=== PATIENT | male | born 1965 | race Caucasian/White ===

== ENCOUNTER 2020-01-18 00:52 | Inpatient (IN) | payer MEDICAID, OTHER ==
--- NOTE | 2020-01-18 01:28 | ED ---
Psych HPI - General Source: patient Mode of arrival: ambulatory <Mandy Rodriguez - Last Filed: 01/18/20 02:52> <Romy Watson - Last Filed: 01/18/20 05:40> - General Chief Complaint: Psychiatric Symptoms Stated Complaint: Left leg pain Time Seen by Provider: 01/18/20 01:01 - History of Present Illness Initial Comments: Patient is a 54-year-old male presenting to the emergency department obviously under the influence. He told nurse in triage that his legs hurt however patient seems to be under the influence of something, he states he has been drinking tonight and that "he does not have anywhere to go." Patient is refusing to answer any other questions, he is being uncooperative and making rude and vulgar comments. When asked if he is suicidal, he states "All the time." He denies any recent fever or chills. On arrival to the ER his vitals are stable. (Mandy Rodriguez) - Related Data Allergies Allergy/AdvReac Type Severity Reaction Status Date / Time No Known Allergies Allergy Verified 01/18/20 05:28 Review of Systems ROS Other: All systems not noted in ROS Statement are negative. <Mandy Rodriguez - Last Filed: 01/18/20 02:52> ROS Other: All systems not noted in ROS Statement are negative. <Romy Watson - Last Filed: 01/18/20 05:40> ROS Statement: Those systems with pertinent positive or pertinent negative responses have been documented in the HPI. Past Medical History Past Medical History: Unable to Obtain History of Any Multi-Drug Resistant Organisms: Unobtainable Past Surgical History: Unable to Obtain Past Psychological History: Unable to Obtain Smoking Status: Current every day smoker Past Alcohol Use History: Abuse, Daily, Heavy Past Drug Use History: Marijuana <Mandy Rodriguez - Last Filed: 01/18/20 02:52> General Exam Limitations: no limitations <Mandy Rodriguez - Last Filed: 01/18/20 02:52> - General Exam Comments Initial Comments: GENERAL: Patient appears intoxicated, not in any acute distress. HEAD: Atraumatic, normocephalic. EYES: Pupils equal round and reactive to light, extraocular movements intact, sclera anicteric, conjunctiva are normal. Eyelids were unremarkable. ENT: TMs normal, nares patent, oropharynx clear without exudates. Moist mucous membranes. NECK: Normal range of motion, supple without lymphadenopathy or JVD. LUNGS: Unlabored respirations. Breath sounds clear to auscultation bilaterally and equal. No wheezes rales or rhonchi. HEART: Regular rate and rhythm without murmurs, rubs or gallops. ABDOMEN: Soft, nontender, normoactive bowel sounds. No guarding, no rebound. No masses appreciated. : Deferred MUSCULOSKELETAL: Normal extremities with adequate strength and normal range of motion, no pitting or edema. No clubbing or cyanosis. NEUROLOGICAL: Patient is alert and oriented x 3. PSYCH: Appears intoxicated/under the influence SKIN: Warm, Dry, normal turgor, no rashes or lesions noted. (Mandy Rodriguez) Course <Mandy Rodriguez - Last Filed: 01/18/20 02:52> Vital Signs 01/18/20 01/18/20 01:05 05:30 Temperature 98 F 97.1 F L Pulse Rate 76 83 Respiratory 18 16 Rate Blood Pressure 156/76 122/61 O2 Sat by Pulse 98 100 Oximetry - Reevaluation(s) Reevaluation #1: 01/18/20 02:54 Waiting on EPS evaluation. Patient care signed out to Dr. Watson on 2:55. (Mandy Rodriguez) Medical Decision Making <Mandy Rodriguez - Last Filed: 01/18/20 02:52> - Lab Data Result diagrams: 01/18/20 02:40 01/18/20 02:04 <Romy Watson - Last Filed: 01/18/20 05:40> - Medical Decision Making patient is a 54-year-old male presenting with no specific complaint to the ER. Patient appears intoxicated upon arrival, will not say why he is here. He is showing no acute signs of distress, is A&O x 3. Patient's blood alcohol is only 27. I did check his glucose which is 101. Patient is not cooperative, declining any questions, states he just wants to sleep. I did recommend a psychiatric evaluation. (Mandy Rodriguez) Patient was medically cleared for evaluation by emergency psychiatric services. Both the emergency psychiatric services nurse and staff in the ER do feel that the patient appears familiar though under this name has no history of being seen here. Patient is very acutely psychotic providing a vague history of multiple complaints thoughts are all over the place, he seems to have rapidly cycling thoughts and pressured speech. At this time decision was made to admit the patient for acute psychosis. I did complete a psychiatric certification under the given name though the patient was unable to provide any proof of identity. (Romy Watson) - Lab Data Lab Results 01/18/20 01/18/20 01/18/20 Range/Units 02:04 02:04 02:30 WBC (3.8-10.6) k/uL RBC (4.30-5.90) m/uL Hgb (13.0-17.5) gm/dL Hct (39.0-53.0) % MCV (80.0-100.0) fL MCH (25.0-35.0) pg MCHC (31.0-37.0) g/dL RDW (11.5-15.5) % Plt Count (150-450) k/uL Neutrophils % % Lymphocytes % % Monocytes % % Eosinophils % % Basophils % % Neutrophils # (1.3-7.7) k/uL Lymphocytes # (1.0-4.8) k/uL Monocytes # (0-1.0) k/uL Eosinophils # (0-0.7) k/uL Basophils # (0-0.2) k/uL Hypochromasia Sodium 134 L (137-145) mmol/L Potassium 4.0 (3.5-5.1) mmol/L Chloride 104 (98-107) mmol/L Carbon Dioxide 24 (22-30) mmol/L Anion Gap 6 mmol/L BUN 5 L (9-20) mg/dL Creatinine 0.76 (0.66-1.25) mg/dL Est GFR (CKD-EPI)AfAm >90 (>60 ml/min/1.73 sqM) Est GFR (CKD-EPI)NonAf >90 (>60 ml/min/1.73 sqM) Glucose 94 (74-99) mg/dL POC Glucose (mg/dL) 101 H (75-99) mg/dL POC Glu Event Specialist Product Demonstrator ID Janae Avila Calcium 10.4 H (8.4-10.2) mg/dL Total Bilirubin 0.4 (0.2-1.3) mg/dL AST 45 (17-59) U/L ALT 32 (4-49) U/L Alkaline Phosphatase 69 (38-126) U/L Total Protein 6.8 (6.3-8.2) g/dL Albumin 4.2 (3.5-5.0) g/dL Urine Color Urine Appearance (Clear) Urine pH (5.0-8.0) Ur Specific [place] (1.001-1.035) Urine Protein (Negative) Urine Glucose (UA) (Negative) Urine Ketones (Negative) Urine Blood (Negative) Urine Nitrite (Negative) Urine Bilirubin (Negative) Urine Urobilinogen (<2.0) mg/dL Ur Leukocyte Esterase (Negative) Urine Opiates Screen (NotDetected) Ur Oxycodone Screen (NotDetected) Urine Methadone Screen (NotDetected) Ur Propoxyphene Screen (NotDetected) Ur Barbiturates Screen (NotDetected) U Tricyclic Antidepress (NotDetected) Ur Phencyclidine Scrn (NotDetected) Ur Amphetamines Screen (NotDetected) U Methamphetamines Scrn (NotDetected) U Benzodiazepines Scrn (NotDetected) Urine Cocaine Screen (NotDetected) U Marijuana (THC) Screen (NotDetected) Serum Alcohol 27 mg/dL 01/18/20 01/18/20 Range/Units 02:39 02:40 WBC 10.9 H (3.8-10.6) k/uL RBC 4.60 (4.30-5.90) m/uL Hgb 12.5 L (13.0-17.5) gm/dL Hct 41.7 (39.0-53.0) % MCV 90.7 (80.0-100.0) fL MCH 27.2 (25.0-35.0) pg MCHC 29.9 L (31.0-37.0) g/dL RDW 15.6 H (11.5-15.5) % Plt Count 385 (150-450) k/uL Neutrophils % 69 % Lymphocytes % 20 % Monocytes % 7 % Eosinophils % 3 % Basophils % 1 % Neutrophils # 7.5 (1.3-7.7) k/uL Lymphocytes # 2.1 (1.0-4.8) k/uL Monocytes # 0.7 (0-1.0) k/uL Eosinophils # 0.3 (0-0.7) k/uL Basophils # 0.1 (0-0.2) k/uL Hypochromasia Slight Sodium (137-145) mmol/L Potassium (3.5-5.1) mmol/L Chloride (98-107) mmol/L Carbon Dioxide (22-30) mmol/L Anion Gap mmol/L BUN (9-20) mg/dL Creatinine (0.66-1.25) mg/dL Est GFR (CKD-EPI)AfAm (>60 ml/min/1.73 sqM) Est GFR (CKD-EPI)NonAf (>60 ml/min/1.73 sqM) Glucose (74-99) mg/dL POC Glucose (mg/dL) (75-99) mg/dL POC Glu Event Specialist Product Demonstrator ID Calcium (8.4-10.2) mg/dL Total Bilirubin (0.2-1.3) mg/dL AST (17-59) U/L ALT (4-49) U/L Alkaline Phosphatase (38-126) U/L Total Protein (6.3-8.2) g/dL Albumin (3.5-5.0) g/dL Urine Color Colorless Urine Appearance Clear (Clear) Urine pH 5.5 (5.0-8.0) Ur Specific [place] 1.001 (1.001-1.035) Urine Protein Negative (Negative) Urine Glucose (UA) Negative (Negative) Urine Ketones Negative (Negative) Urine Blood Negative (Negative) Urine Nitrite Negative (Negative) Urine Bilirubin Negative (Negative) Urine Urobilinogen <2.0 (<2.0) mg/dL Ur Leukocyte Esterase Negative (Negative) Urine Opiates Screen Not Detected (NotDetected) Ur Oxycodone Screen Not Detected (NotDetected) Urine Methadone Screen Not Detected (NotDetected) Ur Propoxyphene Screen Not Detected (NotDetected) Ur Barbiturates Screen Not Detected (NotDetected) U Tricyclic Antidepress Not Detected (NotDetected) Ur Phencyclidine Scrn Not Detected (NotDetected) Ur Amphetamines Screen Not Detected (NotDetected) U Methamphetamines Scrn Not Detected (NotDetected) U Benzodiazepines Scrn Not Detected (NotDetected) Urine Cocaine Screen Not Detected (NotDetected) U Marijuana (THC) Screen Not Detected (NotDetected) Serum Alcohol mg/dL Disposition <Mandy Rodriguez - Last Filed: 01/18/20 02:52> Is patient prescribed a controlled substance at d/c from ED?: No <Romy Watson - Last Filed: 01/18/20 05:40> Clinical Impression: Acute psychosis Disposition: TRANSFER TO PSYCH HOSP/UNIT Condition: Serious
[2020-01-18 02:35] LABS: Glucose,Whole Blood 101 mg/dL (75-99)
[2020-01-18 02:56] LABS: ALT 32 U/L (4-49); AST 45 U/L (17-59); African American GFR (CKD) >90 (>60 ml/min/1.73 sqM); Albumin 4.2 g/dL (3.5-5.0); Alkaline Phosphatase 69 U/L (38-126); Anion Gap 6 mmol/L; Blood Urea Nitrogen 5 mg/dL (9-20); Calcium 10.4 mg/dL (8.4-10.2); Carbon Dioxide 24 mmol/L (22-30); Chloride 104 mmol/L (98-107); Glucose 94 mg/dL (74-99); Non-African American GFR(CKD) >90 (>60 ml/min/1.73 sqM); Sodium 134 mmol/L (137-145); Total Bilirubin 0.4 mg/dL (0.2-1.3); Total Protein 6.8 g/dL (6.3-8.2)
[2020-01-18 02:56] LABS: Basophils # (A) 0.1 k/uL (0-0.2); Basophils % (A) 1 %; Eosinophils # (A) 0.3 k/uL (0-0.7); Eosinophils % (A) 3 %; HCT 41.7 % (39.0-53.0); HGB 12.5 gm/dL (13.0-17.5); Hypochromasia Slight; Lymphocytes # (A) 2.1 k/uL (1.0-4.8); Lymphocytes % (A) 20 %; MCH 27.2 pg (25.0-35.0); MCHC 29.9 g/dL (31.0-37.0); MCV 90.7 fL (80.0-100.0); Mean Platelet Volume 6.4; Monocytes # (A) 0.7 k/uL (0-1.0); Monocytes % (A) 7 %; Neutrophils # (A) 7.5 k/uL (1.3-7.7); Neutrophils % (A) 69 %; Platelet Count 385 k/uL (150-450); RDW 15.6 % (11.5-15.5); WBC 10.9 k/uL (3.8-10.6)
[2020-01-18 03:03] LABS: Appearance,Urine Clear (Clear); Bilirubin,Urine Negative (Negative); Blood,Urine Negative (Negative); Color,Urine Colorless; Glucose,Urine (UA) Negative (Negative); Ketones,Urine Negative (Negative); Leukocyte Esterase,Urine Negative (Negative); Nitrite,Urine Negative (Negative); PH, Urine 5.5 (5.0-8.0); Protein,Urine Negative (Negative); Specific Gravity,Urine 1.001 (1.001-1.035); Urobilinogen,Urine <2.0 mg/dL (<2.0)
[2020-01-18 03:18] LABS: Amphetamine Screen,Urine Not Detected (NotDetected); Barbiturate Screen,Urine Not Detected (NotDetected); Benzodiazepines Screen,Urine Not Detected (NotDetected); Cocaine Screen,Urine Not Detected (NotDetected); Methadone Screen, Urine Not Detected (NotDetected); Opiate Screen,Urine Not Detected (NotDetected); Oxycodone Screen, Urine Not Detected (NotDetected); Phencyclidine Screen,Urine Not Detected (NotDetected); Tricyclic Antidepressant,Urine Not Detected (NotDetected); Urn Cannabinoid Scrn Not Detected (NotDetected)
[2020-01-18] MEDS ORDERED: LORazepam 2 MG/ML INJ IM PRN (05:27)
[2020-01-18] MEDS: NICOTINE 14MG/24HR PATCH TRANSDERM SCH (08:52)
[2020-01-18] MEDS ORDERED: MAGNESIUM HYDROXIDE 2,400 MG/10 ML CUP PO PRN (09:00)
[2020-01-18] MEDS ORDERED: ZIPRASIDONE 20 MG VIAL IM PRN (09:00)
[2020-01-18 09:36] LABS: Albumin 4.3 g/dL (3.5-5.0); Bilirubin, Delta 0.3 mg/dL (0.0-0.2); Bilirubin,Unconjugated 0.2 mg/dL (0.0-1.1); Total Bilirubin 0.5 mg/dL (0.2-1.3); Total Protein 6.9 g/dL (6.3-8.2)
--- NOTE | 2020-01-18 12:07 | P.HP ---
Psychiatric H&P - . H&P Date: 01/18/20 History & Physical: Allergies Allergy/AdvReac Type Severity Reaction Status Date / Time No Known Allergies Allergy Verified 01/18/20 05:28 Vital Signs Temp 98.0 F 01/18/20 05:45 Pulse 79 01/18/20 05:45 Resp 16 01/18/20 05:45 BP 117/80 01/18/20 05:45 Pulse Ox 100 01/18/20 05:30 Intake & Output 01/17/20 01/18/20 01/18/20 18:59 06:59 18:59 Weight 72.66 kg Laboratory Last Values WBC 10.9 k/uL (3.8-10.6) H 01/18/20 02:40 RBC 4.60 m/uL (4.30-5.90) 01/18/20 02:40 Hgb 12.5 gm/dL (13.0-17.5) L 01/18/20 02:40 Hct 41.7 % (39.0-53.0) 01/18/20 02:40 MCV 90.7 fL (80.0-100.0) 01/18/20 02:40 MCH 27.2 pg (25.0-35.0) 01/18/20 02:40 MCHC 29.9 g/dL (31.0-37.0) L 01/18/20 02:40 RDW 15.6 % (11.5-15.5) H 01/18/20 02:40 Plt Count 385 k/uL (150-450) 01/18/20 02:40 Neutrophils % 69 % 01/18/20 02:40 Lymphocytes % 20 % 01/18/20 02:40 Monocytes % 7 % 01/18/20 02:40 Eosinophils % 3 % 01/18/20 02:40 Basophils % 1 % 01/18/20 02:40 Neutrophils # 7.5 k/uL (1.3-7.7) 01/18/20 02:40 Lymphocytes # 2.1 k/uL (1.0-4.8) 01/18/20 02:40 Monocytes # 0.7 k/uL (0-1.0) 01/18/20 02:40 Eosinophils # 0.3 k/uL (0-0.7) 01/18/20 02:40 Basophils # 0.1 k/uL (0-0.2) 01/18/20 02:40 Hypochromasia Slight 01/18/20 02:40 Sodium 134 mmol/L (137-145) L 01/18/20 02:04 Potassium 4.0 mmol/L (3.5-5.1) 01/18/20 02:04 Chloride 104 mmol/L (98-107) 01/18/20 02:04 Carbon Dioxide 24 mmol/L (22-30) 01/18/20 02:04 Anion Gap 6 mmol/L 01/18/20 02:04 BUN 5 mg/dL (9-20) L 01/18/20 02:04 Creatinine 0.76 mg/dL (0.66-1.25) 01/18/20 02:04 Est GFR (CKD-EPI)AfAm >90 (>60 ml/min/1.73 sqM) 01/18/20 02:04 Est GFR (CKD-EPI)NonAf >90 (>60 ml/min/1.73 sqM) 01/18/20 02:04 Glucose 94 mg/dL (74-99) 01/18/20 02:04 POC Glucose (mg/dL) 101 mg/dL (75-99) H 01/18/20 02:30 POC Glu Software Computer Specialist Janae Faulkner 01/18/20 02:30 Calcium 10.4 mg/dL (8.4-10.2) H 01/18/20 02:04 Total Bilirubin 0.5 mg/dL (0.2-1.3) 01/18/20 08:56 Conjugated Bilirubin 0.0 mg/dL (0.0-0.3) 01/18/20 08:56 Unconjugated Bilirubin 0.2 mg/dL (0.0-1.1) 01/18/20 08:56 Delta Bilirubin 0.3 mg/dL (0.0-0.2) H 01/18/20 08:56 AST 42 U/L (17-59) 01/18/20 08:56 ALT 29 U/L (4-49) 01/18/20 08:56 Alkaline Phosphatase 71 U/L (38-126) 01/18/20 08:56 Total Protein 6.9 g/dL (6.3-8.2) 01/18/20 08:56 Albumin 4.3 g/dL (3.5-5.0) 01/18/20 08:56 Triglycerides 70 mg/dL (<150) 01/18/20 08:56 Cholesterol 130 mg/dL (<200) 01/18/20 08:56 LDL Cholesterol, Calc 29 mg/dL (0-99) 01/18/20 08:56 HDL Cholesterol 87 mg/dL (40-60) H 01/18/20 08:56 TSH 0.646 mIU/L (0.465-4.680) 01/18/20 08:56 Urine Color Colorless 01/18/20 02:39 Urine Appearance Clear (Clear) 01/18/20 02:39 Urine pH 5.5 (5.0-8.0) 01/18/20 02:39 Ur Specific [place] 1.001 (1.001-1.035) 01/18/20 02:39 Urine Protein Negative (Negative) 01/18/20 02:39 Urine Glucose (UA) Negative (Negative) 01/18/20 02:39 Urine Ketones Negative (Negative) 01/18/20 02:39 Urine Blood Negative (Negative) 01/18/20 02:39 Urine Nitrite Negative (Negative) 01/18/20 02:39 Urine Bilirubin Negative (Negative) 01/18/20 02:39 Urine Urobilinogen <2.0 mg/dL (<2.0) 01/18/20 02:39 Ur Leukocyte Esterase Negative (Negative) 01/18/20 02:39 Urine Opiates Screen Not Detected (NotDetected) 01/18/20 02:39 Ur Oxycodone Screen Not Detected (NotDetected) 01/18/20 02:39 Urine Methadone Screen Not Detected (NotDetected) 01/18/20 02:39 Ur Propoxyphene Screen Not Detected (NotDetected) 01/18/20 02:39 Ur Barbiturates Screen Not Detected (NotDetected) 01/18/20 02:39 U Tricyclic Antidepress Not Detected (NotDetected) 01/18/20 02:39 Ur Phencyclidine Scrn Not Detected (NotDetected) 01/18/20 02:39 Ur Amphetamines Screen Not Detected (NotDetected) 09/30/20 02:39 U Methamphetamines Scrn Not Detected (NotDetected) 01/18/20 02:39 U Benzodiazepines Scrn Not Detected (NotDetected) 01/18/20 02:39 Urine Cocaine Screen Not Detected (NotDetected) 01/18/20 02:39 U Marijuana (THC) Screen Not Detected (NotDetected) 01/18/20 02:39 Serum Alcohol 27 mg/dL 01/18/20 02:04 IDENTIFYING DATA: Patient is a 54-year-old male with significant history of bipolar disorder, antisocial disorder, and alcohol use who was a dmitted involuntarily for priyank. HPI: Patient presented to the hospital on 01/18/2020 under the influence of alcohol and stating that he "does not have anywhere to go." Patient reports that he came to the hospital because he is "in pain." And asked about the pain, patient reports that it is just everywhere. Upon evaluation the emergency department, patient was noted to have pressured speech, flight of ideas, and was making nonsensical statements. Upon arrival on the unit, patient is intermittently cooperative with staff and is unable to provide any clear and coherent history. He was noted to state that he was suicidal "all the time" but is currently denying any suicidal ideation to this provider. He does report homicidal ideation and that he would "fight people and that I am ready." He is unable to determine if this is to any specific person. He would go on multiple rents including around about police, the [employer], and how he was sleeping in a dumpster prior to coming to the hospital. When exploring his psychiatric history, patient asked this proposal lead writer how much would cost for him to be discharged. In exploring manic symptoms, patient does endorse racing thoughts, irritability, and periods of excessive energy. Patient states that he was awake for 14 days straight in the past. He admits to alcohol use but is not reporting any other drug or substance use at this time. PAST PSYCHIATRIC HISTORY: Patient is open with [facility]. He does recall some prior psychiatric medications but is unable to state which ones they are. He does report prior psychiatric hospitalizations. Patient denies any history of suicide attempts in the past. PMH: Able to obtain ALLERGIES: as per EMR CHEMICAL DEPENDENCY HISTORY: Alcohol use, marijuana, tobacco FAMILY PSYCHIATRIC/SUBSTANCE USE HISTORY: Unable to obtain SOCIAL HISTORY: Unable to obtain. MENTAL STATUS EXAM: General Appearance: Patient appears to be stated age is alert, but indirectable at times. Patient appears to have fair hygiene and grooming. Behavior: Patient is lying in bed with elevated psychomotor activity. Poor eye contact. Intermittently cooperative Speech: Patient's speech is pressured, tangential, and nonsensical at times. Mood/Affect: Patient reports their mood is "in pain", affect is expansive and labile. Suicidality/Homicidality: Patient reports having homicidal ideation but no current intention or plan. Denies any suicidal ideations intent or plan Perceptions: Patient denies any visual hallucinations and denies any auditory hallucinations Though content/process: Patient appears to be disorganized, with flight of ideas. Memory and concentration: AOX3, grossly intact for the purposes of this session. Concentration is poor. Judgment and insight: poor STRENGTHS/WEAKNESSES: strength is that patient is resilient. Weakness is that patient has poor judgment and is impulsive INTELLECT: average IMPRESSIONS: Bipolar disorder, type I, current episode manic PLAN: -Patient is admitted under involuntary status to MHU for stabilization of psychiatric symptoms and safety. A second certification was completed and along with petition will be filed for court. -Medications : Will start patient on Risperdal 0.5 mg by mouth twice a day for mood stabilization Depakote 500 mg by mouth at bedtime for mood stabilization -Ativan and Geodon PRN for agitation/aggression -CIWA protocol with Ativan PRN for ETOH withdrawal -Patient was informed of the risks, benefits and side effects of the medication and patient verbally consented to taking the medications. Patient refused to sign med consent form. -Internal Medicine consult to perform medical evaluation and physical. -NRT - nicotine patch - on board for discharge planning. Encourage patient to participate in groups to work on coping skills. 01/18/20 11:55
[2020-01-18] MEDS: MAG HYDROX/AL HYDROX/SIMETH 30 ML CUP PO PRN ×2 (15:10→20:50)
[2020-01-18] MEDS: ACETAMINOPHEN TAB 325 MG TAB PO PRN ×2 (16:25→20:15)
[2020-01-18] MEDS: risperiDONE 0.5 MG TAB PO SCH (20:14)
[2020-01-18] MEDS: LORazepam 1 MG TAB PO PRN (20:16)
[2020-01-18] MEDS ORDERED: DIVALPROEX ER 500 MG TAB.ER.24H PO SCH (21:00)
[2020-01-18 22:22] LABS: Hemoglobin A1C 5.7 % (4.0-6.0)
--- NOTE | 2020-01-18 22:51 | P.CONS ---
History of Present Illness - Reason for Consult Consult date: 01/18/20 - History of Present Illness Patient is a 54-year-old homeless male with a PMH of alcohol abuse, tobacco abuse, and bipolar disorder who had presented to the ED intoxicated and had reported suicidal ideation. The patient was admitted to the mental health unit where he was seen and evaluated earlier today. The patient was vulgar during the interview and examination. 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 He reported pain at the site though denied fever, chills. Denied any additional complaints. Denied nausea, vomiting, abdominal pain, or diarrhea. Denied chest pain, shortness of breath, or cough. Review of Systems Pertinent positives and negatives as discussed in HPI, a complete review of systems was performed and all other systems are negative. Past Medical History Past Medical History: Unable to Obtain History of Any Multi-Drug Resistant Organisms: Unobtainable Past Surgical History: Unable to Obtain Past Psychological History: Unable to Obtain Smoking Status: Current every day smoker Past Alcohol Use History: Abuse, Daily, Heavy Past Drug Use History: Marijuana Medications and Allergies Home Medications Medication Instructions Recorded Confirmed Type No Known Home Medications 01/18/20 01/18/20 History Allergies Allergy/AdvReac Type Severity Reaction Status Date / Time No Known Allergies Allergy Verified 01/18/20 05:28 Physical Exam Vitals: Vital Signs Temp Pulse Pulse Resp BP BP Pulse Ox 01/18/20 05:45 98.0 F 79 16 117/80 01/18/20 05:30 97.1 F L 83 16 122/61 100 01/18/20 01:05 98 F 76 18 156/76 98 Intake and Output 01/18/20 01/18/20 01/18/20 06:59 14:59 22:59 Other: Weight 72.66 kg General: non toxic, no distress, appears at stated age, normal weight Derm: Left anterior leg 2 cm round ulcer noted with scab and minimal underlying fluctuance with surrounding erythema and warmth and tenderness, no unusual ecchymoses, warm, dry Head: atraumatic, normocephalic, symmetric Eyes: EOMI, no lid lag, anicteric sclera, pupils equal round reactive to light ENT: Nose and ears atraumatic, no thrush, no pharyngeal erythema Neck: No thyromegaly, no cervical lymphadenopathy, trachea midline, supple Mouth: no lip lesion, mucus membranes moist Cardiovascular: S1S2 reg, grade 3 systolic murmur appreciated, positive posterior tibial pulse bilateral, no edema, capillary refill less than 2 seconds Lungs: CTA bilateral, no rhonchi, no rales , no accessory muscle use Abdominal: soft, nontender to palpation, no guarding, no appreciable organomegaly, normal bowel sounds Ext: no gross muscle atrophy, muscle strength 5 out of 5 in all 4 extremities grossly, no contractures, Neuro: CN II-XI grossly intact, light touch intact all 4 extremities, finger to nose within normal limits, Psych: Alert, oriented, appropriate affect Results CBC & Chem 7: 01/18/20 02:40 01/18/20 02:04 Labs: Abnormal Lab Results - Last 24 Hours (Table) 01/18/20 01/18/20 01/18/20 Range/Units 02:04 02:30 02:40 WBC 10.9 H (3.8-10.6) k/uL Hgb 12.5 L (13.0-17.5) gm/dL MCHC 29.9 L (31.0-37.0) g/dL RDW 15.6 H (11.5-15.5) % Sodium 134 L (137-145) mmol/L BUN 5 L (9-20) mg/dL POC Glucose (mg/dL) 101 H (75-99) mg/dL Calcium 10.4 H (8.4-10.2) mg/dL Delta Bilirubin (0.0-0.2) mg/dL HDL Cholesterol (40-60) mg/dL 01/18/20 Range/Units 08:56 WBC (3.8-10.6) k/uL Hgb (13.0-17.5) gm/dL MCHC (31.0-37.0) g/dL RDW (11.5-15.5) % Sodium (137-145) mmol/L BUN (9-20) mg/dL POC Glucose (mg/dL) (75-99) mg/dL Calcium (8.4-10.2) mg/dL Delta Bilirubin 0.3 H (0.0-0.2) mg/dL HDL Cholesterol 87 H (40-60) mg/dL Assessment and Plan Plan: Left lower extremity cellulitis -Proceed with a course of clindamycin -Mio the area for progress Systolic murmur -Patient reports he has had this murmur most of his life -Notes that this was why he was unable to enlist in the [employer] -Obtain echocardiogram Tobacco abuse -Nicotine patch when necessary Alcohol abuse -Thiamine, folic acid, multivitamin -Monitor for withdrawal Psychosis with depression -As per psychiatry Thank you for allowing us to participate in the care of this patient. We will follow peripherally. Do not hesitate to contact us with questions. Someone can be reached from the [facility] hospitalist group at all hours of the day at [phone].
[2020-01-18] MEDS: CLINDAMYCIN 150 MG CAP PO SCH (23:58)
[2020-01-19] MEDS: MAG HYDROX/AL HYDROX/SIMETH 30 ML CUP PO PRN (00:53)
[2020-01-19] MEDS: CLINDAMYCIN 150 MG CAP PO SCH ×3 (09:27→21:00)
[2020-01-19] MEDS: FOLIC ACID 1 MG TAB PO SCH (09:27)
[2020-01-19] MEDS: PANTOPRAZOLE 40 MG TABLET PO SCH ×2 (09:27→21:01)
[2020-01-19] MEDS: NICOTINE 14MG/24HR PATCH TRANSDERM SCH (09:28)
[2020-01-19] MEDS: THIAMINE 100 MG TAB PO SCH (09:28)
[2020-01-19] MEDS: MULTIVITAMINS, THERA 1 EACH TAB PO SCH (09:28)
[2020-01-19] MEDS: LORazepam 1 MG TAB PO PRN (09:29)
[2020-01-19] MEDS: risperiDONE 0.5 MG TAB PO SCH (09:29)
--- NOTE | 2020-01-19 12:10 | P.PN ---
Progress Note - Text Progress Note Date: 01/19/20 Interval History: Patient was seen participating in group and was directable and agreeable to speak with appeals writer in the office. Reports that he feels "better." At this time patient denies any suicidal or homical ideations, intent or plan. He states that his sleep was significantly improved with his medications. He has been noted to continue to be very tangential in his speech and somewhat disorganized. He has been interrupting groups and other milieu activities. At times, the patient appears to be intrusive and requests that someone from the unit go to a nearby house to coal picker supplies for him. Patient denies any auditory, visual hallucinations and denies any paranoia or delusions. Patient denies any side effects from the medications and has been compliant with meds. Mental Status Exam: General Appearance: Patient appears to be stated age is alert, directable, and cooperative. Behavior: Patient is calmly seated without any agitated behavior. Ambulates via wheelchair. Speech: Patient's speech is fluent and less pressured. Tangential. Mood/Affect: Mood is improving mildly, affect is congruent and expansive in range. Suicidality/Homicidality: Patient denies having any suicidal or homicidal ideation intent or plan. Perceptions: Patient denies any visual hallucinations and denies any auditory hallucinations Though content/process: Patient is somewhat disorganized but can be linear and logical and short conversation. Memory and concentration: AOX3, grossly intact for the purposes of this session Judgment and insight: Improving mildly Assessment Bipolar disorder, type I, current episode manic Plan: -Patient continues to meet criteria for inpatient psychiatric admission for symptom stabilization and safety. Second clinical certificate has been filled out. Patient will be presented with the opportunity to defer. -Medications: Increase Depakote to 750 mg by mouth at bedtime for mood stabilization Increase Risperdal to 0.75 mg by mouth twice a day for mood stabilization -When necessary Ativan and Geodon for agitation/aggression. -NRT - nicotine patch -SW on board for discharge planning. Encouraged the patient to participate in milieu.
[2020-01-19] MEDS: ACETAMINOPHEN TAB 325 MG TAB PO PRN (14:46)
--- NOTE | 2020-01-19 17:49 | ECHOF ---
Referral Reason:systolic murmur MEASUREMENTS -------- HEIGHT: 182.9 cm WEIGHT: 72.6 kg BP: RVIDd: 4.0 cm (< 3.3) IVSd: 1.4 cm (0.6 - 1.1) LVIDd: 5.4 cm (3.9 - 5.3) LVPWd: 1.4 cm (0.6 - 1.1) IVSs: 1.5 cm LVIDs: 3.5 cm LVPWs: 2.0 cm MV E Jose: 1.27 m/s MV DecT: 157 ms MV A Jose: 0.89 m/s MV E/A Ratio: 1.43 RAP: 15.00 mmHg RVSP: 51.05 mmHg FINDINGS -------- This was a technically adequate study. The left ventricular size is normal. There is moderate concentric left ventricular hypertrophy. O verall left ventricular systolic function is normal with, an EF between 55 - 60 %. Left ventricular fillimg pressure cannot be estimated due to severe mitral regurgitation. The right ventricle is moderately enlarged. LA is severely dilated >40 ml/m2 The right atrium is moderately enlarged. Interatrial and interventricular septum intact. The aortic valve is trileaflet and appears structurally normal. There is no evidence of aortic regu rgitation. There is no evidence of aortic stenosis. The mitral valve leaflets are mildly thickened. Severe mitral regurgitation is present. Pcgy-vq-ctkskadh tricuspid regurgitation present. There is moderate pulmonary hypertension. The r ight ventricular systolic pressure, as measured by Doppler, is 51.05mmHg. There is no pulmonic regurgitation present. The aortic root size is normal. The inferior vena cava is mildly dilated. There is no pericardial effusion. CONCLUSIONS -------- 1. The left ventricular size is normal. 2. There is moderate concentric left ventricular hypertrophy. 3. Overall left ventricular systolic function is normal with, an EF between 55 - 60 %. 4. Left ventricular fillimg pressure cannot be estimated due to severe mitral regurgitation. 5. The right ventricle is moderately enlarged. 6. LA is severely dilated >40 ml/m2 7. The right atrium is moderately enlarged. 8. The mitral valve leaflets are mildly thickened. 9. Severe mitral regurgitation is present. 10. Ajlz-sd-emqufayh tricuspid regurgitation present. 11. There is moderate pulmonary hypertension. 12. The right ventricular systolic pressure, as measured by Doppler, is 51.05mmHg. 13. consider CESAR to r/oflail mitral leaflet DIRECTOR OF ROTC: Ngoc Nur RDCS
[2020-01-19] MEDS ORDERED: DIVALPROEX ER 250 MG TAB.ER.24H PO SCH (21:00)
[2020-01-19] MEDS: risperiDONE 0.25 MG TAB PO SCH (21:01)
[2020-01-20] MEDS: MULTIVITAMINS, THERA 1 EACH TAB PO SCH (09:20)
[2020-01-20] MEDS: NICOTINE 14MG/24HR PATCH TRANSDERM SCH (09:20)
[2020-01-20] MEDS: FOLIC ACID 1 MG TAB PO SCH (09:20)
[2020-01-20] MEDS: CLINDAMYCIN 150 MG CAP PO SCH ×3 (09:20→21:32)
[2020-01-20] MEDS: THIAMINE 100 MG TAB PO SCH (09:20)
[2020-01-20] MEDS: PANTOPRAZOLE 40 MG TABLET PO SCH (09:20)
[2020-01-20] MEDS: risperiDONE 0.25 MG TAB PO SCH ×2 (09:20→21:32)
[2020-01-20] MEDS: ACETAMINOPHEN TAB 325 MG TAB PO PRN ×3 (09:21→19:44)
[2020-01-20] MEDS: LORazepam 1 MG TAB PO PRN (09:21)
--- NOTE | 2020-01-20 11:20 | P.PN ---
Progress Note - Text Progress Note Date: 01/20/20 Interval History: Patient was seen wandering the hallways and was directable and agreeable to speak with life insurance underwriter in the office. Patient continues to speak nonsensically. He appears to be fixated on "[employer] family businesses stating that they are his family. He expresses that there are numerous different people that annoy him and that he would "kick their a." He mentions numerous names of people that he seems this provider would know including an Uncle Huseyin who lives down the street. He reports no significant issues with sleep. He has been intrusive and making inappropriate sexually explicit statements to female staff on the unit despite being told not to. He is to be disruptive in group and milieu activities. He denies any depression. At this time patient denies any suicidal or homicidal ideations, intent or plan. Patient denies any auditory, visual h allucinations and denies any paranoia or delusions. Patient denies any side effects from the medications and has been compliant with meds. Mental Status Exam: General Appearance: Patient appears to be stated age is alert, slightly disheveled, difficult to direct and intermittently cooperative. Behavior: Patient is staring out the window at "[employer]" and stating that he is waiting for money to be dropped off. He doesn't sit down during the interview and paces back and forth in the room. Speech: Patient's speech is fluent, spontaneous, but significant pressured. Difficult to interrupt. Mood/Affect: Mood is irritable, affect is annoyed with expansive range. Suicidality/Homicidality: Patient denies having any suicidal ideation or intention. He does endorse outs of violence towards others. Perceptions: Patient denies any visual hallucinations and denies any auditory hallucinations Though content/process: Patient tends to fixate on people and property outside the windows. Flight of ideas and tangentiality. Memory and concentration: AOX3, grossly intact for the purposes of this session Judgment and insight: Poor Assessment Bipolar disorder, type I, current episode manic Plan: -Patient continues to meet criteria for inpatient psychiatric admission for symptom stabilization and safety. Patient was scheduled for a meeting with his assistant district attorney today with the option to defer. -Medications: Increase Depakote ER to 1000 mg by mouth at bedtime for mood stabilization Increase Risperdal to 1 mg by mouth twice a day for mood stabilization Depakote level to be drawn on Thursday -When necessary Ativan and Geodon for agitation/aggression. -NRT - ncotine patch SW on board for discharge planning. Encouraged the patient to participate in milieu.
[2020-01-20] MEDS: NAPROXEN 250 MG TAB PO PRN (17:11)
[2020-01-20] MEDS: MAG HYDROX/AL HYDROX/SIMETH 30 ML CUP PO PRN (17:24)
[2020-01-20] MEDS: DIVALPROEX ER 500 MG TAB.ER.24H PO SCH (21:33)
[2020-01-21] MEDS: FOLIC ACID 1 MG TAB PO SCH (09:10)
[2020-01-21] MEDS: PANTOPRAZOLE 40 MG TABLET PO SCH (09:10)
[2020-01-21] MEDS: CLINDAMYCIN 150 MG CAP PO SCH ×3 (09:10→21:21)
[2020-01-21] MEDS: MULTIVITAMINS, THERA 1 EACH TAB PO SCH (09:10)
[2020-01-21] MEDS: NICOTINE 14MG/24HR PATCH TRANSDERM SCH (09:10)
[2020-01-21] MEDS: THIAMINE 100 MG TAB PO SCH (09:10)
[2020-01-21] MEDS: risperiDONE 0.25 MG TAB PO SCH (09:12)
[2020-01-21] MEDS: LORazepam 1 MG TAB PO PRN (09:17)
[2020-01-21] MEDS: NAPROXEN 250 MG TAB PO PRN (10:59)
[2020-01-21] MEDS: ACETAMINOPHEN TAB 325 MG TAB PO PRN (13:49)
[2020-01-21] MEDS: MAG HYDROX/AL HYDROX/SIMETH 30 ML CUP PO PRN ×2 (16:23→21:24)
[2020-01-21] MEDS ORDERED: HYDROCORTISONE 2.5% RECTAL CREAM 30 GM TUBE RECTAL PRN (17:36)
[2020-01-21] MEDS: risperiDONE 1 MG TAB PO SCH ×2 (18:28→21:22)
--- NOTE | 2020-01-21 20:43 | PN ---
PROGRESS NOTE DATE OF SERVICE: 01/21/2020 CHIEF COMPLAINT: The patient was manic. He had disorganized thoughts and behavior. He stated that he had suicidal thinking. INTERVAL HISTORY: Patient continues to be quite intense in his manner. He was out much of the day yesterday. He wonders about. He can get loud at times. He has pressured speech and flight of ideas. He will engage others in random conversations about one thing or another. He did not attend groups. He said he slept well last night. Today he has been up. He continues the same. He apparently did defer in regard to his petition. He has not attended groups today. He has been loud intermittently. He has been cooperative. When I talked to him today, mostly he spoke with somewhat rapid pressured speech. He would ramble from one subject to another. At times, it was difficult to interrupt him or move the conversation towards more immediate issues. He denied problems with his medications. He did ask a few appropriate questions about his medications. MENTAL STATUS: Patient was quite restless. He had an intense manner. He talked in a rapid way at times. He showed flight of ideas and some loose association. He would ramble about current or past events. His affect was intense, his mood elevated. It was difficult to assess for thought disorder. He voiced no thoughts of harm. He did make an effort to answer formal cognitive questions though appeared to be oriented and alert. ASSESSMENT: I will continue the current diagnosis and treatment plan. We will continue to engage the patient in individual and group therapeutic activities. The patient continues to show significant manic symptoms. He does have a valproic acid level scheduled for tomorrow. I will increase his Risperdal to 3 mg twice a day. I reviewed medication issues with the patient including indications, potential side effects, metabolic concerns relating to his antipsychotic, as well as some movement disorder issues. I limited the discussion to some extent as the patient was not able to clearly follow the conversation. We will focus on stabilization and discharge planning. MMODL / AKILAN: [id number] /
[2020-01-21] MEDS: DIVALPROEX ER 500 MG TAB.ER.24H PO SCH (21:21)
[2020-01-22] MEDS: NICOTINE 14MG/24HR PATCH TRANSDERM SCH (09:10)
[2020-01-22] MEDS: CLINDAMYCIN 150 MG CAP PO SCH ×3 (09:10→21:25)
[2020-01-22] MEDS: MULTIVITAMINS, THERA 1 EACH TAB PO SCH (09:10)
[2020-01-22] MEDS: risperiDONE 1 MG TAB PO SCH ×2 (09:10→21:25)
[2020-01-22] MEDS: FOLIC ACID 1 MG TAB PO SCH (09:10)
[2020-01-22] MEDS: PANTOPRAZOLE 40 MG TABLET PO SCH (09:10)
[2020-01-22] MEDS: THIAMINE 100 MG TAB PO SCH (09:10)
[2020-01-22] MEDS: NAPROXEN 250 MG TAB PO PRN ×2 (09:11→21:31)
[2020-01-22] MEDS: MAG HYDROX/AL HYDROX/SIMETH 30 ML CUP PO PRN ×3 (09:15→21:31)
[2020-01-22] MEDS: ACETAMINOPHEN TAB 325 MG TAB PO PRN ×2 (13:06→17:01)
[2020-01-22] MEDS: DIVALPROEX ER 500 MG TAB.ER.24H PO SCH (21:24)
--- NOTE | 2020-01-23 02:17 | PN ---
PROGRESS NOTE DATE OF SERVICE: 01/22/2020. CHIEF COMPLAINT: The patient was manic. He had disorganized thoughts and behavior. He stated that he had suicidal thinking. INTERVAL HISTORY: Patient continues to do about the same. He was out on the unit much of the day yesterday. He wanders about. He will interact with others. He will often make efforts to engage in conversations whether other people respond to him or not. He did attend a group yesterday though needed some support to maintain appropriate language in the group, that was the only group he attended yesterday. Often he will be out wandering in a fairly high an energetic manner. He will make random statements, not always clear that connected to things going on around him. He generally seems to be up in his mood and at times can be somewhat boisterous. He tolerates his psychotropic medications. MENTAL STATUS: Patient was fairly restless in his manner. He gave fair eye contact. He was rather active in his movements, so it was not always clear that he was paying attention to me. His affect was broad. His mood expansive and generally elevated. He did not appear to be distressed. He shows some indication of thought disorder, mainly relating to his expansive mood. There is no thoughts of harm to self or others. He was oriented and alert. ASSESSMENT: I will continue the current diagnosis and treatment plan. Patient continues to show significant manic symptoms. He does seem to be showing some improvement, though it has been fairly gradual. His Depakote level was 35 from this morning. At this point I will increase Depakote to 1500 mg a day. I would anticipate his getting another Depakote level in 2 to 3 days. I briefly discussed medication issues with the patient, though he was not too inclined to stay connected to the conversation. We will focus on stabilization and discharge planning. MMODL / IJN: [id number] /
[2020-01-23] MEDS: NICOTINE 14MG/24HR PATCH TRANSDERM SCH (10:20)
[2020-01-23] MEDS: CLINDAMYCIN 150 MG CAP PO SCH ×2 (10:20→15:55)
[2020-01-23] MEDS: PANTOPRAZOLE 40 MG TABLET PO SCH (10:20)
[2020-01-23] MEDS: risperiDONE 1 MG TAB PO SCH (10:21)
[2020-01-23] MEDS: FOLIC ACID 1 MG TAB PO SCH (10:21)
[2020-01-23] MEDS: THIAMINE 100 MG TAB PO SCH (10:21)
[2020-01-23] MEDS: MULTIVITAMINS, THERA 1 EACH TAB PO SCH (10:21)
--- NOTE | 2020-01-23 11:33 | P.PN ---
Progress Note - Text Progress Note Date: 01/23/20 Interval History: Patient was seen in his bedroom and was directable and agreeable to speak with sports book writer in his bedroom with no one else present. She reported that he has been feeling increasingly tired and sedated and that is why he refused this morning's Risperdal. He is not endorsing any significant symptoms of priyank at this time. He expresses a desire for discharge to manage his finances and Social Security. At this time patient denies any suicidal or homicidal ideations, intent or plan. Patient denies any auditory, visual hallucinations and denies any paranoia or delusions. He endorses feeling overly sedated due to the medication. Mental Status Exam: General Appearance: Patient appears to be stated age is alert, directable, and cooperative. Behavior: Patient is lying in bed with intermittent eye contact covered in his bed sheets. Speech: Patient's speech is fluent and nonpressured. Mood/Affect: Mood is improving mildly, affect is congruent and constricted. Suicidality/Homicidality: Patient denies having any suicidal or homicidal ideation intent or plan. Perceptions: Patient denies any visual hallucinations and denies any auditory hallucinations Though content/process: There is no evidence of any delusional thought content and thought process is linear and goal-directed. Memory and concentration: AOX3, grossly intact for the purposes of this session Judgment and insight: Improving mildly Assessment Bipolar disorder, type I, current episode manic Plan: -Patient continues to meet criteria for inpatient psychiatric admission for symptom stabilization and safety. Patient has deferred. -Medications: Decrease Risperdal to 2 mg by mouth twice a day due to oversedation. Continue Depakote ER 1500 mg at bedtime for mood stabilization. Consider monitoring of Depakote level. Anticipate discharge in 1 to 3 days. -When necessary Atdavid and Mikedon for agitation/aggression. -NRT - nicotine patch -SW on board for discharge planning. Encouraged the patient to participate in milieu.
[2020-01-23] MEDS: ACETAMINOPHEN TAB 325 MG TAB PO PRN (15:55)
[2020-01-23] MEDS: MAG HYDROX/AL HYDROX/SIMETH 30 ML CUP PO PRN (15:58)
[2020-01-23] MEDS: risperiDONE 2 MG TAB PO SCH (21:11)
[2020-01-23] MEDS: DIVALPROEX ER 500 MG TAB.ER.24H PO SCH (21:11)
[2020-01-23] MEDS: NAPROXEN 250 MG TAB PO PRN (21:11)
[2020-01-24 04:48] VITALS: BP 120/62; PULSE 80; RESP 17; TEMP 98.1
--- NOTE | 2020-01-24 09:25 | P.DS ---
Providers Date of admission: 01/18/20 05:16 Expected date of discharge: 01/24/20 Attending physician: Eliezer George MD Consults: 01/18/20 05:24 Consult Physician Routine Consulting Provider: Amelia Ennis Consult Reason/Comments: For H & P for Medical Follow Up Do you want consulting provider notified?: Yes Primary care physician: Stated None - Discharge Diagnosis(es) (1) Bipolar 1 disorder Current Visit: Yes Status: Acute Priority: High (2) Tobacco use disorder Current Visit: Yes Status: Chronic Priority: Medium Hospital Course: Admission HPI: Patient is a 54-year-old male with significant history of bipolar disorder, antisocial disorder, and alcohol use who was admitted involuntarily for priyank. Patient presented to the hospital on 01/18/2020 under the influence of alcohol and stating that he "does not have anywhere to go." Patient reports that he came to the hospital because he is "in pain." And asked about the pain, patient reports that it is just everywhere. Upon evaluation the emergency department, patient was noted to have pressured speech, flight of ideas, and was making nonsensical statements. Upon arrival on the unit, patient is intermittently cooperative with staff and is unable to provide any clear and coherent history. He was noted to state that he was suicidal "all the time" but is currently d enying any suicidal ideation to this provider. He does report homicidal ideation and that he would "fight people and that I am ready." He is unable to determine if this is to any specific person. He would go on multiple rents including around about police, the [employer], and how he was sleeping in a dumpster prior to coming to the hospital. When exploring his psychiatric history, patient asked this typewriter mechanic how much would cost for him to be discharged. In exploring manic symptoms, patient does endorse racing thoughts, irritability, and periods of excessive energy. Patient states that he was awake for 14 days straight in the past. He admits to alcohol use but is not reporting any other drug or substance use at this time. Hospital course: Upon admission to the unit patient was initially intrusive, inappropriate, and somewhat disorganized. Patient was however directable and agreeable to commence treatment. Patient got along well with other patients on the unit and followed unit protocol. Patient was compliant with the medications and denied any side effects throughout hospital course. Patient was started on Risperdal and Depakote in order to stabilize his mood. Patient spoke of [his] stressors and engaged in therapy both group and individual. He was initially noted to be disruptive during group and milieu activities. Patient was also seen by medical team for history and physical exam. He has been adherent with his medications and eventually displayed stabilization in mood including regular sleep, less intrusiveness, less disorganization, and less sexually inappropriate behavior. Throughout the course of the hospitalization patient gradually improved with regards to mood stabilization and became future oriented with improved insight and judgment. On the day of discharge patient denied any suicidal or homicidal ideations intent or plan denied any auditory or visual hallucinations. Patient endorsed wanting to live for his family and his hobbies which include hunting deer with a bow. The patient denied any access to guns but reports that he has a recurve bow which she uses for hunting. Patient denied any paranoia and did not endorse any delusions. Patient does have a significant history of substance abuse, but was negative on his drug scene prior to this admission. He is reporting tolerance as well as medications and is denying any side effects. He reports no medical problems. He denies any chest pain, abdominal pain, muscle tightness, or restlessness. He [however] was counseled on abstaining from all substances including alcohol and marijuana. Patient was also counseled on the medications and need for regular compliance and was encouraged to follow-up with their outpatient appointment for mental health and also for primary care. Mental status exam: General Appearance: [Patient appears to be stated age is alert, pleasant, and cooperative. Patient is in no acute distress and has fair hygiene and grooming] Behavior: [Patient is calmly seated without any agitated behavior.] Speech: Patient's speech is fluent and nonpressured. Mood/Affect: Patient reports their mood is "[much better]", affect is congruent and euthymic to bright. Suicidality/Homicidality: Patient denies having any suicidal or homicidal ideation intent or plan. Perceptions: Patient denies any auditory or visual hallucinations. Though content/process: There is no evidence of any delusional thought content and thought process is linear and goal-directed. [more future oriented] Memory and concentration: AOX3, grossly intact for the purposes of this session. Can spell "WORLD" backwards correctly. Judgment and insight: Improved [with guarded prognosis] Impression: Bipolar disorder, type I Tobacco use disorder Plan: -Continue with discharge today as patient has improved and stabilized psychiatrically and is not currently an imminent threat to [himself] and/or others. [Patient will remain at chronically elevated risk for harm to self and/or others due to his impulsivity and history of drug abuse.] -Continue medications: Depakote 1500 mg by mouth at bedtime for mood stabilization Risperdal 2 mg by mouth twice a day for mood stabilization Nicotine patch for tobacco cessation -Patient was counseled on the need for medication compliance and appropriate follow-up at mental health and also primary care for medical issues. Patient verbalized understanding and agreed. -Social work to [arrange for and conduct family meeting to ensure safety upon discharge and answer any questions/concerns.] Social work also to arrange for patients follow up appointments [with [facility]] for psychiatric care along with follow up with primary care provider. -Patient counseled on abstaining from recreational drugs and marijuana and alcohol. Was informed/educated on the adverse effects on their physical and mental health. [Patient verbally agreed and understood]. -Patient was instructed to return to the hospital or seek immediate medical care if their psychiatric or medical symptoms do worsen or reoccur. Allergies Allergy/AdvReac Type Severity Reaction Status Date / Time No Known Allergies Allergy Verified 01/18/20 05:28 Vital Signs Temp 98.1 F 01/24/20 04:48 Pulse 80 01/24/20 04:48 Resp 17 01/24/20 04:48 BP 120/62 01/24/20 04:48 Pulse Ox 98 01/24/20 04:48 Laboratory Results WBC 10.9 k/uL (3.8-10.6) H 01/18/20 02:40 RBC 4.60 m/uL (4.30-5.90) 01/18/20 02:40 Hgb 12.5 gm/dL (13.0-17.5) L 01/18/20 02:40 Hct 41.7 % (39.0-53.0) 01/18/20 02:40 MCV 90.7 fL (80.0-100.0) 01/18/20 02:40 MCH 27.2 pg (25.0-35.0) 01/18/20 02:40 MCHC 29.9 g/dL (31.0-37.0) L 01/18/20 02:40 RDW 15.6 % (11.5-15.5) H 01/18/20 02:40 Plt Count 385 k/uL (150-450) 01/18/20 02:40 Neutrophils % 69 % 01/18/20 02:40 Lymphocytes % 20 % 01/18/20 02:40 Monocytes % 7 % 01/18/20 02:40 Eosinophils % 3 % 01/18/20 02:40 Basophils % 1 % 01/18/20 02:40 Neutrophils # 7.5 k/uL (1.3-7.7) 01/18/20 02:40 Lymphocytes # 2.1 k/uL (1.0-4.8) 01/18/20 02:40 Monocytes # 0.7 k/uL (0-1.0) 01/18/20 02:40 Eosinophils # 0.3 k/uL (0-0.7) 01/18/20 02:40 Basophils # 0.1 k/uL (0-0.2) 01/18/20 02:40 Hypochromasia Slight 01/18/20 02:40 Sodium 134 mmol/L (137-145) L 01/18/20 02:04 Potassium 4.0 mmol/L (3.5-5.1) 01/18/20 02:04 Chloride 104 mmol/L (98-107) 01/18/20 02:04 Carbon Dioxide 24 mmol/L (22-30) 01/18/20 02:04 Anion Gap 6 mmol/L 01/18/20 02:04 BUN 5 mg/dL (9-20) L 01/18/20 02:04 Creatinine 0.76 mg/dL (0.66-1.25) 01/18/20 02:04 Est GFR (CKD-EPI)AfAm >90 (>60 ml/min/1.73 sqM) 01/18/20 02:04 Est GFR (CKD-EPI)NonAf >90 (>60 ml/min/1.73 sqM) 01/18/20 02:04 Glucose 94 mg/dL (74-99) 01/18/20 02:04 POC Glucose (mg/dL) 101 mg/dL (75-99) H 09/30/20 02:30 POC Glu Truck Driver Helper ID Avila, Janae 01/18/20 02:[address] Glu mg/dL 117 01/18/20 08:56 Hemoglobin A1c 5.7 % (4.0-6.0) 01/18/20 08:56 Calcium 10.4 mg/dL (8.4-10.2) H 01/18/20 02:04 Total Bilirubin 0.5 mg/dL (0.2-1.3) 01/18/20 08:56 Conjugated Bilirubin 0.0 mg/dL (0.0-0.3) 01/18/20 08:56 Unconjugated Bilirubin 0.2 mg/dL (0.0-1.1) 01/18/20 08:56 Delta Bilirubin 0.3 mg/dL (0.0-0.2) H 01/18/20 08:56 AST 42 U/L (17-59) 01/18/20 08:56 ALT 29 U/L (4-49) 01/18/20 08:56 Alkaline Phosphatase 71 U/L (38-126) 01/18/20 08:56 Total Protein 6.9 g/dL (6.3-8.2) 01/18/20 08:56 Albumin 4.3 g/dL (3.5-5.0) 01/18/20 08:56 Triglycerides 70 mg/dL (<150) 01/18/20 08:56 Cholesterol 130 mg/dL (<200) 01/18/20 08:56 LDL Cholesterol, Calc 29 mg/dL (0-99) 01/18/20 08:56 HDL Cholesterol 87 mg/dL (40-60) H 01/18/20 08:56 TSH 0.646 mIU/L (0.465-4.680) 01/18/20 08:56 Urine Color Colorless 01/18/20 02:39 Urine Appearance Clear (Clear) 01/18/20 02:39 Urine pH 5.5 (5.0-8.0) 01/18/20 02:39 Ur Specific [place] 1.001 (1.001-1.035) 01/18/20 02:39 Urine Protein Negative (Negative) 01/18/20 02:39 Urine Glucose (UA) Negative (Negative) 01/18/20 02:39 Urine Ketones Negative (Negative) 01/18/20 02:39 Urine Blood Negative (Negative) 01/18/20 02:39 Urine Nitrite Negative (Negative) 01/18/20 02:39 Urine Bilirubin Negative (Negative) 01/18/20 02:39 Urine Urobilinogen <2.0 mg/dL (<2.0) 01/18/20 02:39 Ur Leukocyte Esterase Negative (Negative) 01/18/20 02:39 Urine Opiates Screen Not Detected (NotDetected) 01/18/20 02:39 Ur Oxycodone Screen Not Detected (NotDetected) 01/18/20 02:39 Urine Methadone Screen Not Detected (NotDetected) 01/18/20 02:39 Ur Propoxyphene Screen Not Detected (NotDetected) 01/18/20 02:39 Ur Barbiturates Screen Not Detected (NotDetected) 01/18/20 02:39 Valproic Acid 34.9 ug/mL 01/22/20 08:57 U Tricyclic Antidepress Not Detected (NotDetected) 01/18/20 02:39 Ur Phencyclidine Scrn Not Detected (NotDetected) 01/18/20 02:39 Ur Amphetamines Screen Not Detected (NotDetected) 01/18/20 02:39 U Methamphetamines Scrn Not Detected (NotDetected) 01/18/20 02:39 U Benzodiazepines Scrn Not Detected (NotDetected) 01/18/20 02:39 Urine Cocaine Screen Not Detected (NotDetected) 01/18/20 02:39 U Marijuana (THC) Screen Not Detected (NotDetected) 01/18/20 02:39 Serum Alcohol 27 mg/dL 01/18/20 02:04 Patient Condition at Discharge: Stable Plan - Discharge Summary Discharge Rx Participant: Yes New Discharge Prescriptions: New Divalproex ER [Depakote ER] 1,500 mg PO HS 30 Days tab.er.24h Folic Acid 1 mg PO DAILY 30 Days tab Nicotine 14Mg/24Hr Patch [Habitrol] 1 patch TRANSDERM DAILY 30 Days patch Multivitamins, Thera [Multivitamin (formulary)] 1 each PO DAILY 30 Days tab risperiDONE [RisperDAL] 2 mg PO BID 30 Days tab Thiamine [Vitamin B-1] 100 mg PO DAILY 30 Days tab Discharge Medication List Divalproex ER [Depakote ER] 1,500 mg PO HS 30 Days tab.er.24h 01/24/20 [Rx] Folic Acid 1 mg PO DAILY 30 Days tab 01/24/20 [Rx] Multivitamins, Thera [Multivitamin (formulary)] 1 each PO DAILY 30 Days tab 01/24/20 [Rx] Nicotine 14Mg/24Hr Patch [Habitrol] 1 patch TRANSDERM DAILY 30 Days patch 01/24/20 [Rx] Thiamine [Vitamin B-1] 100 mg PO DAILY 30 Days tab 01/24/20 [Rx] risperiDONE [RisperDAL] 2 mg PO BID 30 Days tab 01/24/20 [Rx] Follow up Appointment(s)/Referral(s): None,Stated [Primary Care Provider] - 1-2 days Activity/Diet/Wound Care/Special Instructions: Activity and diet as tolerated. Avoid the use of street drugs and alcohol. Take all medications as prescribed. When you are in need of refills on your medications please contact your medical provider and/or outpatient psychiatrist to have this done. Please go to scheduled outpatient appointment for aftercare treatment. If symptoms return or become worse, call the crisis line at and/or go to the nearest emergency room for evaluation. Discharge Disposition: OTHER INSTITUTION NOT DEFINED
[2020-01-24] MEDS: FOLIC ACID 1 MG TAB PO SCH (09:37)
[2020-01-24] MEDS: risperiDONE 2 MG TAB PO SCH (09:37)
[2020-01-24] MEDS: MULTIVITAMINS, THERA 1 EACH TAB PO SCH (09:37)
[2020-01-24] MEDS: PANTOPRAZOLE 40 MG TABLET PO SCH (09:37)
[2020-01-24] MEDS: NICOTINE 14MG/24HR PATCH TRANSDERM SCH (09:37)
[2020-01-24] MEDS: THIAMINE 100 MG TAB PO SCH (09:37)
[2020-01-24] MEDS: MAG HYDROX/AL HYDROX/SIMETH 30 ML CUP PO PRN (09:40)
== END 2020-01-24 12:52 | disposition home or self-care (01) | DRG 885 ==
LOC: EC 00:52 → 3MHU 05:16
PROVIDERS: ADMIT Psychiatry & Neurology Psychiatry; ATTEND Psychiatry & Neurology Psychiatry
DX: F31.2 Bipolar disorder, current episode manic severe with psychotic features (principal); R45.851 Suicidal ideations; L03.116 Cellulitis of left lower limb; R45.850 Homicidal ideations; R45.87 Impulsiveness; F17.200 Nicotine dependence, unspecified, uncomplicated; Z71.6 Tobacco abuse counseling; F10.10 Alcohol abuse, uncomplicated; Z59.0 Homelessness
CPT/HCPCS: 36415; 80053; 80061; 80076; 80164; 80306; 80320; 81003; 83036; 84443; 85025; 93306; 99285

== ENCOUNTER 2020-05-12 18:11 | Observation (INO) | payer OTHER ==
--- NOTE | 2020-05-12 18:59 | ED ---
General Adult HPI - General Chief complaint: Altered Mental Status Stated complaint: AMS Time Seen by Provider: 05/12/20 18:54 Source: patient, police Mode of arrival: wheelchair Limitations: altered mental status - History of Present Illness Initial comments: Patient presents to the ED from [facility] with correctional officer captain for evaluation. Per report, the patient has had altered mental status for the past couple of days. Per officer, the patient was "talking to someone in the back seat" during transport to the ED today. Patient is somnolent in appearance on arrival to the ED, and he requires constant stimulation in order to get him to answer questions. Patient tells me that he feels "fine". Patient denies having any pain, headache, focal neuro deficit, chest pain, dyspnea, palpitations, abdominal pain, nausea/vomiting/diarrhea, or any other symptoms or complaints. Patient denies medication abuse or overdose. Patient denies drug abuse or alcohol abuse. - Related Data Home Medications Medication Instructions Recorded Confirmed Benztropine Mesylate [Cogentin] 1 mg PO BID 05/12/20 05/12/20 Divalproex ER [Depakote ER] 1,000 mg PO HS 05/12/20 05/12/20 Omeprazole 20 mg PO DAILY 05/12/20 05/12/20 risperiDONE 4 mg PO BID 05/12/20 05/12/20 Allergies Allergy/AdvReac Type Severity Reaction Status Date / Time No Known Allergies Allergy Verified 05/12/20 19:42 Review of Systems ROS Statement: Those systems with pertinent positive or pertinent negative responses have been documented in the HPI. ROS Other: All systems not noted in ROS Statement are negative. Past Medical History Past Medical History: Unable to Obtain History of Any Multi-Drug Resistant Organisms: Unobtainable Past Surgical History: Unable to Obtain Past Psychological History: Unable to Obtain Smoking Status: Current every day smoker Past Alcohol Use History: Abuse, Daily, Heavy Past Drug Use History: Marijuana General Exam Limitations: altered mental status General appearance: other (Patient is somnolent in appearance, but easily arousable with loud verbal and painful stimulus) Head exam: Present: atraumatic, normocephalic Eye exam: Present: normal appearance, PERRL, EOMI ENT exam: Present: mucous membranes moist Neck exam: Present: other (Trachea is in midline; no nuchal rigidity or meningeal signs are present). Absent: tenderness, meningismus Respiratory exam: Present: normal lung sounds bilaterally. Absent: respiratory distress, wheezes, rales, rhonchi, stridor Cardiovascular Exam: Present: regular rate, normal rhythm, systolic murmur, other (Normal radial pulses bilaterally) GI/Abdominal exam: Present: soft. Absent: distended, tenderness, guarding Extremities exam: Absent: tenderness, pedal edema Neurological exam: Present: oriented X3, CN II-XII intact, other (Patient is somnolent in appearance, but easily arousable with loud verbal and painful stimulus). Absent: motor sensory deficit Psychiatric exam: Present: normal affect Skin exam: Present: warm, dry, intact, normal color Course Vital Signs 05/12/20 05/12/20 05/12/20 18:21 19:19 20:42 Temperature 98.6 F Pulse Rate 103 H 91 93 Respiratory 20 18 18 Rate Blood Pressure 137/88 177/102 182/106 O2 Sat by Pulse 98 96 97 Oximetry - Reevaluation(s) Reevaluation #1: 05/12/20 20:17 Case, H&P and test results were discussed with Dr. Carson. He accepts hospital admission. He recommends placing a neurology consultation for Thursday (when neurology coverage will restart). He also recommends Covid testing. He has no further recommendations at this time. 05/12/20 20:38 Patient remains somnolent, but arousable. Patient continues to deny having any symptoms. Patient continues to be breathing comfortably with a normal room air oxygen saturation. I have explained to the patient his test results, and he agrees with hospital admission at this time. 05/12/20 20:46 Patient now appears to be tremulous and his blood pressure has increased. Given that the patient is reportedly taking Risperdal, will treat the patient with IV Ativan at this time in case of possible NMS, although patient is not hyperthermic. EKG Findings - EKG Comments: EKG Findings:: Normal sinus rhythm, ventricular rate of 87 bpm, no ectopy, LVH with QRS widening, QRS duration of 120 ms, normal QT interval, normal axis, no ST or T-wave abnormality Medical Decision Making - Medical Decision Making Patient's labs and imaging studies are fairly unremarkable. I am uncertain of the definite etiology of the patient's altered mental status, but I suspect that it may possibly be secondary to his medications, and Risperdal in particular. Will hold patient's Risperdal. Will admit the patient the hospital for further evaluation and monitoring. Dr. Carson has accepted hospital admission. - Lab Data Result diagrams: 05/12/20 19:10 05/12/20 19:10 Lab Results 05/12/20 05/12/20 05/12/20 Range/Units 19:10 19:10 19:10 WBC 9.8 (3.8-10.6) k/uL RBC 4.03 L (4.30-5.90) m/uL Hgb 12.7 L (13.0-17.5) gm/dL Hct 39.1 (39.0-53.0) % MCV 97.0 (80.0-100.0) fL MCH 31.6 (25.0-35.0) pg MCHC 32.6 (31.0-37.0) g/dL RDW 14.8 (11.5-15.5) % Plt Count 190 (150-450) k/uL MPV 9.3 Neutrophils % 72 % Lymphocytes % 15 % Monocytes % 10 % Eosinophils % 1 % Basophils % 0 % Neutrophils # 7.1 (1.3-7.7) k/uL Lymphocytes # 1.5 (1.0-4.8) k/uL Monocytes # 1.0 (0-1.0) k/uL Eosinophils # 0.1 (0-0.7) k/uL Basophils # 0.0 (0-0.2) k/uL PT 10.8 (9.0-12.0) sec INR 1.0 (<1.2) APTT 20.0 L (22.0-30.0) sec Sodium 137 (137-145) mmol/L Potassium 5.1 (3.5-5.1) mmol/L Chloride 104 (98-107) mmol/L Carbon Dioxide 25 (22-30) mmol/L Anion Gap 8 mmol/L BUN 15 (9-20) mg/dL Creatinine 0.79 (0.66-1.25) mg/dL Est GFR (CKD-EPI)AfAm >90 (>60 ml/min/1.73 sqM) Est GFR (CKD-EPI)NonAf >90 (>60 ml/min/1.73 sqM) Glucose 105 H (74-99) mg/dL POC Glucose (mg/dL) (75-99) mg/dL POC Glu Popcorn Vendor ID Calcium 11.4 H (8.4-10.2) mg/dL Total Bilirubin 1.5 H (0.2-1.3) mg/dL AST 52 (17-59) U/L ALT 27 (4-49) U/L Alkaline Phosphatase 41 (38-126) U/L Ammonia (<30) umol/L Creatine Kinase 95 (55-170) U/L Troponin I (0.000-0.034) ng/mL Total Protein 8.0 (6.3-8.2) g/dL Albumin 4.7 (3.5-5.0) g/dL Valproic Acid 35.3 ug/mL Serum Alcohol <10 mg/dL 05/12/20 05/12/20 05/12/20 Range/Units 19:10 19:10 19:16 WBC (3.8-10.6) k/uL RBC (4.30-5.90) m/uL Hgb (13.0-17.5) gm/dL Hct (39.0-53.0) % MCV (80.0-100.0) fL MCH (25.0-35.0) pg MCHC (31.0-37.0) g/dL RDW (11.5-15.5) % Plt Count (150-450) k/uL MPV Neutrophils % % Lymphocytes % % Monocytes % % Eosinophils % % Basophils % % Neutrophils # (1.3-7.7) k/uL Lymphocytes # (1.0-4.8) k/uL Monocytes # (0-1.0) k/uL Eosinophils # (0-0.7) k/uL Basophils # (0-0.2) k/uL PT (9.0-12.0) sec INR (<1.2) APTT (22.0-30.0) sec Sodium (137-145) mmol/L Potassium (3.5-5.1) mmol/L Chloride (98-107) mmol/L Carbon Dioxide (22-30) mmol/L Anion Gap mmol/L BUN (9-20) mg/dL Creatinine (0.66-1.25) mg/dL Est GFR (CKD-EPI)AfAm (>60 ml/min/1.73 sqM) Est GFR (CKD-EPI)NonAf (>60 ml/min/1.73 sqM) Glucose (74-99) mg/dL POC Glucose (mg/dL) 101 H (75-99) mg/dL POC Glu Popcorn Vendor ID Dara Schwarz Calcium (8.4-10.2) mg/dL Total Bilirubin (0.2-1.3) mg/dL AST (17-59) U/L ALT (4-49) U/L Alkaline Phosphatase (38-126) U/L Ammonia 28 (<30) umol/L Creatine Kinase (55-170) U/L Troponin I 0.015 (0.000-0.034) ng/mL Total Protein (6.3-8.2) g/dL Albumin (3.5-5.0) g/dL Valproic Acid ug/mL Serum Alcohol mg/dL - Radiology Data Radiology results: report reviewed (Noncontrast head CT is negative; chest x-ray is negative) Disposition Clinical Impression: Altered mental status Disposition: ADMITTED IP TO THIS [facility] Condition: Stable Is patient prescribed a controlled substance at d/c from ED?: No Referrals: None,Stated [Primary Care Provider] - 1-2 days Time of Disposition: 20:18
[2020-05-12 19:18] LABS: Glucose,Whole Blood 101 mg/dL (75-99)
[2020-05-12 19:24] LABS: Basophils % (A) 0 %; Eosinophils # (A) 0.1 k/uL (0-0.7); Eosinophils % (A) 1 %; HCT 39.1 % (39.0-53.0); HGB 12.7 gm/dL (13.0-17.5); Lymphocytes # (A) 1.5 k/uL (1.0-4.8); Lymphocytes % (A) 15 %; MCH 31.6 pg (25.0-35.0); MCHC 32.6 g/dL (31.0-37.0); Mean Platelet Volume 9.3; Monocytes % (A) 10 %; Neutrophils # (A) 7.1 k/uL (1.3-7.7); Neutrophils % (A) 72 %; Platelet Count 190 k/uL (150-450); RBC 4.03 m/uL (4.30-5.90); RDW 14.8 % (11.5-15.5); WBC 9.8 k/uL (3.8-10.6)
[2020-05-12 19:39] LABS: ALT 27 U/L (4-49); AST 52 U/L (17-59); African American GFR (CKD) >90 (>60 ml/min/1.73 sqM); Albumin 4.7 g/dL (3.5-5.0); Alcohol <10 mg/dL; Alkaline Phosphatase 41 U/L (38-126); Anion Gap 8 mmol/L; Blood Urea Nitrogen 15 mg/dL (9-20); Calcium 11.4 mg/dL (8.4-10.2); Carbon Dioxide 25 mmol/L (22-30); Chloride 104 mmol/L (98-107); Creatine Kinase 95 U/L (55-170); Glucose 105 mg/dL (74-99); Non-African American GFR(CKD) >90 (>60 ml/min/1.73 sqM); Sodium 137 mmol/L (137-145); Total Bilirubin 1.5 mg/dL (0.2-1.3)
[2020-05-12 19:44] LABS: Valproic Acid (Depakene) 35.3 ug/mL
--- NOTE | 2020-05-12 19:45 | XR ---
EXAMINATION TYPE: XR chest 1V portable DATE OF EXAM: 05/12/2020 COMPARISON: 02/08/2009 HISTORY: Altered mental status TECHNIQUE: FINDINGS: There is no heart failure nor confluent pneumonic infiltrate. Costophrenic angles are clear . There are no hilar masses. IMPRESSION: No active cardiopulmonary disease. No adverse change
--- NOTE | 2020-05-12 19:47 | CT ---
EXAMINATION TYPE: CT brain wo con DATE OF EXAM: 05/12/2020 COMPARISON: None HISTORY: Altered mental status. CT DLP: 1123.4 mGycm Automated exposure control for dose reduction was used. Ventricles have normal size. There is no mass effect nor midline shift. There is no sign of intracran ial hemorrhage. The calvarium is intact IMPRESSION: Negative unenhanced head CT scan.
[2020-05-12 19:52] LABS: Potassium 5.1 mmol/L (3.5-5.1)
[2020-05-12 20:11] LABS: Prothrombin Time 10.8 sec (9.0-12.0)
[2020-05-12] MEDS ORDERED: LORazepam 2 MG/ML INJ IV STA (20:46)
[2020-05-12] MEDS: SODIUM CHLORIDE 0.9% 1,000 ML IV SCH (20:53)
[2020-05-12] MEDS ORDERED: RISPERIDONE 4 MG PO SCH (21:00)
[2020-05-12] MEDS ORDERED: DIVALPROEX ER 500 MG TAB.ER.24H PO SCH (22:00)
[2020-05-12] MEDS: BENZTROPINE MESYLATE 1 MG TAB PO SCH (23:23)
[2020-05-12 23:31] LABS: Appearance,Urine Clear (Clear); Bilirubin,Urine Negative (Negative); Blood,Urine Negative (Negative); Color,Urine Yellow; Glucose,Urine (UA) Negative (Negative); Ketones,Urine Negative (Negative); Leukocyte Esterase,Urine Negative (Negative); Nitrite,Urine Negative (Negative); Protein,Urine Negative (Negative); Specific Gravity,Urine 1.017 (1.001-1.035); Urobilinogen,Urine <2.0 mg/dL (<2.0)
[2020-05-12 23:47] LABS: Amphetamine Screen,Urine Not Detected (NotDetected); Barbiturate Screen,Urine Not Detected (NotDetected); Benzodiazepines Screen,Urine Not Detected (NotDetected); Cocaine Screen,Urine Not Detected (NotDetected); Methadone Screen, Urine Not Detected (NotDetected); Opiate Screen,Urine Not Detected (NotDetected); Oxycodone Screen, Urine Not Detected (NotDetected); Phencyclidine Screen,Urine Not Detected (NotDetected); Tricyclic Antidepressant,Urine Not Detected (NotDetected); Urn Cannabinoid Scrn Not Detected (NotDetected)
[2020-05-13] MEDS ORDERED: LORazepam 2 MG/ML INJ IV PRN (03:43)
[2020-05-13] MEDS ORDERED: HALOPERIDOL LACTATE 5 MG/ML 1 ML VIAL IM PRN (03:44)
[2020-05-13 05:46] LABS: Basophils % (A) 1 %; Eosinophils # (A) 0.1 k/uL (0-0.7); Eosinophils % (A) 2 %; HCT 40.3 % (39.0-53.0); Lymphocytes # (A) 1.2 k/uL (1.0-4.8); Lymphocytes % (A) 19 %; MCH 31.4 pg (25.0-35.0); MCHC 32.2 g/dL (31.0-37.0); MCV 97.4 fL (80.0-100.0); Mean Platelet Volume 6.9; Monocytes # (A) 0.7 k/uL (0-1.0); Monocytes % (A) 11 %; Neutrophils # (A) 4.3 k/uL (1.3-7.7); Neutrophils % (A) 66 %; Platelet Count 220 k/uL (150-450); RBC 4.14 m/uL (4.30-5.90); RDW 14.4 % (11.5-15.5); WBC 6.6 k/uL (3.8-10.6)
[2020-05-13 09:00] LABS: African American GFR (CKD) 116.6 (60.0-200.0); Albumin 4.3 g/dL (3.80-4.90); Albumin/Globulin Ratio 2.26 (1.60-3.17); Anion Gap 6.5 mmol/L (4.00-12.00); Calcium 10.7 mg/dL (8.7-10.3); Carbon Dioxide 27.5 mmol/L (21.6-31.8); Globulin 1.9 g/dL (1.6-3.3); Non-African American GFR(CKD) 100.6 (60.0-200.0); Potassium 4.6 mmol/L (3.5-5.5); Total Bilirubin 0.8 mg/dL (0.2-1.2); Total Protein 6.2 g/dL (6.2-8.2)
[2020-05-13] MEDS: BENZTROPINE MESYLATE 1 MG TAB PO SCH (09:41)
[2020-05-13] MEDS: SODIUM CHLORIDE 0.9% 1,000 ML IV SCH ×2 (10:51→20:27)
--- NOTE | 2020-05-13 15:14 | P.CN ---
Psychiatric Consult - . Consult date: 05/13/20 Consult:: 05/13/20 13:15 IDENTIFYING DATA: Patient is a 55-year-old male with significant history of bipolar disorder, antisocial disorder, and alcohol use who was admitted to the hospital from the [facility] HPI: Patient presented to the hospital yesterday and presented with altered mental status in the ER. According to ER report [facility]. Patient apparently was having altered mental status for the past 2 days prior to coming in. The nursing home manager reported that patient had been "talking someone in the backseat of the car" as he was being driven into the hospital. Patient's Risperdal had been held due to concerns that this had been causing his altered mental status. Psychiatry is being consulted for AMS. Patient's nurse claims that patient has been lethargic garcia aster has been eating his meals and has been fairly quiet and is not endorsing any delusions or suicidal ideations. Patient was seen at the bedside today and was handcuffed to the bed and at his side was the admitting officer. The evp chief exploration officer stated that patient was up earlier eating and was talking however is now sleeping. Patient was seen sleeping and very difficult to awaken. He was somnolent and did not answer any questions for newspaper writer today. He did respond to touch however soon would fall back asleep. PAST PSYCHIATRIC HISTORY: Patient is open with [facility] apparently. Patient was previously on Risperdal 4 mg twice a day, Depakote 1000 mg daily at bedtime, Cogentin 1 mg twice a day. Patient has a history of bipolar disorder. According to previous notes patient does not have a history of suicide attempts in the past. PMH: GERD ALLERGIES: as per EMR CHEMICAL DEPENDENCY HISTORY: Alcohol use, marijuana, tobacco as listed in EMR FAMILY PSYCHIATRIC/SUBSTANCE USE HISTORY: Unable to obtain SOCIAL HISTORY: Unable to obtain. MENTAL STATUS EXAM: General Appearance: Patient appears to be stated age is somnolent, difficult to awaken. Patient appears to have poor hygiene and grooming. Wearing orange jumpsuit. Behavior: Patient is lying in bed and is somnolent. No Agitation Speech: Nonverbal. Mood/Affect Unable to assess Suicidality/Homicidality Unable to assess Perceptions: Unable to assess. Not responding to internal stimuli. Though content/process: Unable to assess. Not following commands Memory and concentration: Unable to assess, poor concentration. Judgment and insight: poor IMPRESSIONS: Likely delirium, unknown etiology hx of Bipolar disorder, type 1 Cannabis use disorder Alcohol abuse Nicotine dependence PLAN: -At this time patient DOES NOT meet criteria for inpatient psychiatric admission. We'll continue to follow up with patient to see if he will require psychiatric admission once he is cleared medically. -Delirium precautions recommended with patient including - avoiding use of narcotics and TETRYL BLENDER OPERATOR sedatives, limit anticholinergic medications when possible, frequent re-orientation, minimize use of restraints, open window shades during the day and close them at night -Would recommend the following medication changes/additions: We'll cut back on sedation at this time. Discontinued Cogentin. Continue with Depakote 1000 mg daily at bedtime for mood stabilization. Continue holding Risperdal. -continue with haldol prn for agitation/psychosis. d/c ativan as this may increase patients confusion/delirium. -admitting officer at the bedside. -Communicated plan to patient's nurse -Will continue to follow along -Please contact with any questions.
--- NOTE | 2020-05-13 18:15 | P.HPIM ---
History of Present Illness H&P Date: 05/13/20 Chief Complaint: Altered mental status Patient presents to the ED from [facility] with preventive medicine officer for evaluation. Per report, the patient has had altered mental status for the past couple of days. Per officer, the patient was "talking to someone in the back seat" during transport to the ED today. Patient is somnolent in appearance on arrival to the ED, and he requires constant stimulation in order to get him to answer questions. Patient tells me that he feels "fine". Patient denies having any pain, headache, focal neuro deficit, chest pain, dyspnea, palpitations, abdominal pain, nausea/vomiting/diarrhea, or any other symptoms or complaints. Patient denies medication abuse or overdose. Patient denies drug abuse or alcohol abuse. Workup including EKG reveals Normal sinus rhythm, ventricular rate of 87 bpm, no ectopy, LVH with QRS widening, QRS duration of 120 ms, normal QT interval, normal axis, no ST or T-wave abnormality Patient's labs and imaging studies are fairly unremarkable. Review of Systems REVIEW OF SYSTEMS: CONSTITUTIONAL: No fever, no malaise, no fatigue. HEENT: No recent visual problems or hearing problems. Denied any sore throat. CARDIOVASCULAR: No chest pain, orthopnea, PND, no palpitations, no syncope. PULMONARY: No shortness of breath, no cough, no hemoptysis. GASTROINTESTINAL: No diarrhea, no nausea, no vomiting, no abdominal pain. NEUROLOGICAL: No headaches, no weakness, no numbness. HEMATOLOGICAL: Denies any bleeding or petechiae. GENITOURINARY: Denies any burning micturition, frequency, or urgency. MUSCULOSKELETAL/RHEUMATOLOGICAL: Denies any joint pain, swelling, or any muscle pain. ENDOCRINE: Denies any polyuria or polydipsia. The rest of the 14-point review of systems is negative. Past Medical History Past Medical History: Unable to Obtain History of Any Multi-Drug Resistant Organisms: Unobtainable Past Surgical History: Unable to Obtain Past Psychological History: Bipolar Additional Psychological History / Comment(s): Spoke with nurse 05/13/20 at [facility] regarding medical hx. [facility] has that patient is Bipolar. Patient does see [facility]. Smoking Status: Unknown if ever smoked Past Alcohol Use History: Abuse, Daily, Heavy Past Drug Use History: Marijuana Medications and Allergies Home Medications Medication Instructions Recorded Confirmed Type Benztropine Mesylate [Cogentin] 1 mg PO BID 05/12/20 05/12/20 History Divalproex ER [Depakote ER] 1,000 mg PO HS 05/12/20 05/12/20 History Omeprazole 20 mg PO DAILY 05/12/20 05/12/20 History risperiDONE 4 mg PO BID 05/12/20 05/12/20 History Allergies Allergy/AdvReac Type Severity Reaction Status Date / Time No Known Allergies Allergy Verified 05/12/20 19:42 Physical Exam Vitals: Vital Signs Temp Pulse Pulse Resp BP BP Pulse Ox 05/13/20 02:00 97.6 F 84 16 167/96 96 05/12/20 21:54 97.6 F 100 18 171/103 97 05/12/20 20:42 93 18 182/106 97 05/12/20 19:19 91 18 177/102 96 05/12/20 18:21 98.6 F 103 H 20 137/88 98 Intake and Output 05/12/20 05/13/20 05/13/20 22:59 06:59 14:59 Intake Total 240 Balance 240 Intake: Oral 240 Other: # Voids 2 Weight 81.647 kg Limitations: altered mental status General appearance: other (Patient is somnolent in appearance, but easily arousable with loud verbal and painful stimulus) Head exam: Present: atraumatic, normocephalic Eye exam: Present: normal appearance, PERRL, EOMI ENT exam: Present: mucous membranes moist Neck exam: Present: other (Trachea is in midline; no nuchal rigidity or meningeal signs are present). Absent: tenderness, meningismus Respiratory exam: Present: normal lung sounds bilaterally. Absent: respiratory distress, wheezes, rales, rhonchi, stridor Cardiovascular Exam: Present: regular rate, normal rhythm, systolic murmur, other (Normal radial pulses bilaterally) GI/Abdominal exam: Present: soft. Absent: distended, tenderness, guarding Extremities exam: Absent: tenderness, pedal edema Neurological exam: Present: oriented X3, CN II-XII intact, other (Patient is somnolent in appearance, but easily arousable with loud verbal and painful stimulus). Absent: motor sensory deficit Psychiatric exam: Present: normal affect Skin exam: Present: warm, dry, intact, normal color Results CBC & Chem 7: 05/13/20 05:26 05/13/20 05:26 Labs: Abnormal Lab Results - Last 24 Hours (Table) 05/12/20 05/12/20 05/12/20 Range/Units 19:10 19:10 19:10 RBC 4.03 L (4.30-5.90) m/uL Hgb 12.7 L (13.0-17.5) gm/dL APTT 20.0 L (22.0-30.0) sec Glucose 105 H (74-99) mg/dL POC Glucose (mg/dL) (75-99) mg/dL Calcium 11.4 H (8.4-10.2) mg/dL Total Bilirubin 1.5 H (0.2-1.3) mg/dL 05/12/20 05/13/20 05/13/20 Range/Units 19:16 05:26 05:26 RBC 4.14 L (4.30-5.90) m/uL Hgb (13.0-17.5) gm/dL APTT (22.0-30.0) sec Glucose (74-99) mg/dL POC Glucose (mg/dL) 101 H (75-99) mg/dL Calcium 10.7 H (8.4-10.2) mg/dL Total Bilirubin (0.2-1.3) mg/dL Thrombosis Risk Factor Assmnt - Choose All That Apply Each Factor Represents 1 point: Age 41-60 years Thrombosis Risk Factor Assessment Total Risk Factor Score: 1 Thrombosis Risk Factor Assessment Level: Low Risk Assessment and Plan Assessment: 1. Altered mental status - Workup in ED including labs, noncontrast CT head and chest x-ray is negative - Patient has been placed on IV fluid hydration; neurology is consulted and recommendations are pending; psych evaluated patient with following recommendations- Would recommend the following medication changes/additions: We'll cut back on sedation at this time. Discontinued Cogentin. Continue with Depakote 1000 mg daily at bedtime for mood stabilization. Continue holding Risperdal. -continue with haldol prn for agitation/psychosis. d/c ativan as this may increase patients confusion/delirium. 2. Bipolar disorder/ antisocial disorder/alcohol use - Patient is from [facility]; patient is currently on Cogentin, Depakote and Risperdal; patient has been evaluated by psych with above recommendations DVT prophylaxis; SCDs CODE STATUS; full code
[2020-05-13] MEDS ORDERED: DIVALPROEX ER 500 MG TAB.ER.24H PO SCH (21:00)
[2020-05-14] MEDS: SODIUM CHLORIDE 0.9% 1,000 ML IV SCH (09:56)
[2020-05-14 11:33] LABS: Folate, Serum >24.0 ng/mL
[2020-05-14 12:27] VITALS: BP 147/87; PULSE 70; RESP 16; TEMP 97.7
--- NOTE | 2020-05-14 12:51 | P.CNNES ---
History of Present Illness Consult date: 05/14/20 Requesting physician: Hector Mathew Reason for Consult: Altered mental status History of Present Illness: Patient is a 55-year-old male arrived to the hospital on 05/12/2020 at 6:21 PM by law enforcement transport for altered mental status. Patient has been at [facility] since 01/26/2020. Patient apparently was very somnolent on arrival. He required constant stimulation in order to to get him to answer questions. It was felt to be related to medication side effect. Patient was on Risperdal 4 mg twice a day, Depakote ER 1000 mg at bedtime, Cogentin 1 mg twice a day and omeprazole 20 mg daily. Patient's vital signs on arrival blood pressure 137/88, pulse rate 103, temperature 98.6. Chest x-ray was normal. CT head normal. EKG shows wide QRS rhythm. Left ventricle hypertrophy. Blood tests shows normal CBC PT/PTT, Chem-7, B12 724, folate > 24.0, TSH 3.040. UA negative. Urine drug screen negative blood alcohol level negative. RPR negative. Mcmillan virus negative. Patient has been seen by psychiatrist and was diagnosed with delirium. Cogentin was discontinued. Depakote was recommended to be continued. Risperdal was also held. Haldol as needed for agitation. DC Ativan. At present when I saw the patient, patient is alert and awake fully oriented. The environmental conservation officer was also present. His mentation is back to normal. However patient is complaining of significant weakness of his hands, numbness. Also complaining of pain in both shoulders which is going on for couple weeks to a month ago. He denies any injury or trauma. He states that he cannot hold anything in his hands, and drops it. He feels both hands are weak. He initially declined any pain in the neck although later states that the neck does hurt. Denies any problem with bowel or bladder control. No problems with the legs. He states he has no upper body strength. Patient states that he started with "little numbness" in February 2020 but it got worse. He could not tell where the numbness started. His shoulders muscles aches and pain. Patient states that he has smoked 1 pack per day for 20 years, drinks alcohol on the weekend. He uses marijuana once in a while and used cocaine before. Review of Systems Patient denies any chest pain shortness of breath. Denies any double vision or loss of vision hoarseness, sore throat or dysphagia. All other review of s ystems unremarkable except as mentioned in HPI. Past Medical History Past Medical History: Unable to Obtain History of Any Multi-Drug Resistant Organisms: Unobtainable Past Surgical History: Unable to Obtain Past Psychological History: Bipolar Additional Psychological History / Comment(s): Spoke with nurse 05/13/20 at [facility] regarding medical hx. [facility] has that patient is Bipolar. Patient does see [facility]. Smoking Status: Unknown if ever smoked Past Alcohol Use History: Abuse, Daily, Heavy Past Drug Use History: Marijuana Medications and Allergies Home Medications Medication Instructions Recorded Confirmed Type Omeprazole 20 mg PO DAILY 05/12/20 05/12/20 History Divalproex ER [Depakote ER] 1,000 mg PO HS tab.er.24h 05/14/20 Rx Allergies Allergy/AdvReac Type Severity Reaction Status Date / Time No Known Allergies Allergy Verified 05/12/20 19:42 Physical Examination - Vital Signs Vital Signs: Vital Signs Temp Pulse Pulse Resp BP Pulse Ox 05/14/20 07:13 98 F 85 14 151/76 92 L 05/14/20 02:00 97.6 F 83 16 134/75 05/13/20 19:10 98.2 F 100 16 168/84 97 05/13/20 18:50 18 05/13/20 14:00 98.1 F 91 18 142/94 94 L Intake and Output 05/13/20 05/14/20 05/14/20 22:59 06:59 14:59 Intake Total 300 Balance 300 Intake: Oral 300 Other: # Voids 2 1 On examination patient is a middle aged male, in no acute distress. He is alert and awake. He has a flat affect. Patient is fully oriented, knows it is April 2020 and that he is in [facility] in [place]. Speech and language functions are normal. Attention, concentration and fund of knowledge is adequate. Detail testing deferred. On cranial examination pupils are round and reactive to light, visual espinoza are full on confrontation with no neglect. Extraocular muscles are intact with no nystagmus. Face is symmetric, tongue protrudes the midline. Palatal elevation and sensation normal, hearing and shoulder shrug normal. On muscle strength testing patient could not hold his arms up, as the shoulders were hurting. I could not check his deltoid because of significant pain. Strength no more than 3+ in the shoulders with giveaway weakness due to pain. Biceps 5/5, triceps 4+5-/4 with pain, superintendent maintenance airports 5-, interossei 5, wrist extension is 5, wrist flexion 4/5-, finger extension 5-/5-. Strength is normal in bilateral lower limbs distally and proximally. Reflexes are symmetric, 1+ at the biceps 1 at brachioradialis, 1+ at the knees 1 ankles and plantars are downgoing. Sensory touch is equal. No ataxia for fi [id number]. Tone and bulk of muscles normal. No ataxia for [id number] testing. Bulk of muscles is normal. No obvious bruit, S1 and S2 audible, abdomen soft nontender, no peripheral edema. Peripheral pulses present. Results - Laboratory Findings CBC and BMP: 05/13/20 05:26 05/13/20 05:26 Abnormal Lab Findings: Abnormal Labs 05/12/20 05/12/20 05/12/20 19:10 19:10 19:10 RBC 4.03 L Hgb 12.7 L APTT 20.0 L Glucose 105 H POC Glucose (mg/dL) Calcium 11.4 H Total Bilirubin 1.5 H 05/12/20 05/13/20 05/13/20 19:16 05:26 05:26 RBC 4.14 L Hgb APTT Glucose POC Glucose (mg/dL) 101 H Calcium 10.7 H Total Bilirubin Assessment and Plan Assessment: * Altered mental status, likely due to delirium due to medication side effect, now seems to have resolved. * Bilateral arm weakness, pain, unclear etiology, rule out arthritic process, rule out spinal stenosis versus functional disorder * Patient incarcerated. Plan: * Patient's mental status is back to normal. Appreciate psychiatric input. * Regarding his upper extremity pain and weakness, we will perform x-ray of the shoulders to rule out any arthritis. * MRI of the cervical spine rule out spinal stenosis. * ESR, CRP, KERRY, rheumatoid factor. * If above negative, would be clear for discharge. Addendum: * Shoulder x-ray showed early osteoarthritic changes. No fractures. Bilateral spurring of the AC joint. There is minor spurring of the inferior glenoid bobbi. * MRI of cervical spine showed minimal disc bulging. No spinal stenosis, no fracture. * ESR 8, CRP 9.8, rheumatoid factor negative, KERRY negative.
--- NOTE | 2020-05-14 14:28 | P.PN ---
Progress Note - Text Progress Note Date: 05/14/20 Interval History: Patient was seen today for psychiatric follow up regarding patients altered me ntal status. Patient's nurse claims that patient has been doing fairly today and offered no complaints. Patient was seen today in the room with his correctional case manager at his side. Patient claimed that he did not recognize editorial writer from yesterday and states that "I was too tired". He states that he is having pain over his shoulder and also in his neck and states that he'll be having a MRI done today. He offered no overnight complaints and states that he slept well. He claims that his medications and been adjusted recently by [facility] however cannot recall what the change was. He states that he is doing "better today" and denies any mood swings or irritability and denies any depression. He denies any racing thoughts or flight of ideas. He was for the most part cooperative during the interview and answered questions appropriately. He was alert and oriented 3 however did not know the specific date but did know it was "late April 2020". He states that he has a fair appetite and fair energy level today. He is denying any side effects from his medications. At this time patient denies any suicidal or homical ideations, intent or plan. Patient denies any auditory, visual hallucinations and denies any paranoia or delusions. Mental Status Exam: General Appearance: Patient appears to be stated age is more alert today and attempting to cooperate. Patient appears to have improving hygiene and grooming. Wearing orange jumpsuit. Behavior: Patient is lying in bed and attempting to cooperate. Speech: Fluent, normal rate. Mood/Affect : Claims that his mood is "fine" and affect is congruent and constricted. Suicidality/Homicidality denies Perceptions: Not responding to internal stimuli. Denies any auditory or visual hallucinations. Though content/process: Goal-directed, concrete. Denies any paranoia or delusions. Memory and concentration: Alert and oriented 3, improved memory and concentration. Judgment and insight: Improving mildly. Assessment Delirium, unknown etiology, now resolved hx of Bipolar disorder, type 1 Cannabis use disorder Alcohol abuse Nicotine dependence Plan: -At this time patient DOES NOT meet criteria for inpatient psychiatric admission. -Delirium precautions recommended with patient including - avoiding use of narcotics and PROPERTY ASSESSMENT MONITOR sedatives, limit anticholinergic medications when possible, frequent re-orientation, minimize use of restraints, open window shades during the day and close them at night -Would recommend the following medication changes/additions: Continue with Depakote 1000 mg daily at bedtime for mood stabilization. Continue holding Risperdal. -TSH, syphilis screen, folic acid and B12 levels came back normal and syphilis screen negative. -continue with haldol prn for agitation/psychosis. Avoid ativan at this time as this may increase patients confusion/delirium. -information systems security officer at the bedside. -appreciate neurology recommendations -Communicated plan to patient's nurse -Psychiatry will sign off at this time. -Please contact with any questions.
[2020-05-14 14:47] LABS: C Reactive Protein 9.8 mg/L (<10.0)
--- NOTE | 2020-05-14 14:57 | P.PN ---
Subjective Progress Note Date: 05/14/20 Patient presents to the ED from [facility] with chief communications officer for evaluation. Per report, the patient has had altered mental status for the past couple of days. Per officer, the patient was "talking to someone in the back seat" during transport to the ED today. Patient is somnolent in appearance on arrival to the ED, and he requires constant stimulation in order to get him to answer questions. Patient tells me that he feels "fine". Patient denies having any pain, headache, focal neuro deficit, chest pain, dyspnea, palpitations, abdominal pain, nausea/vomiting/diarrhea, or any other symptoms or complaints. Patient denies medication abuse or overdose. Patient denies drug abuse or alcohol abuse. Workup including EKG reveals Normal sinus rhythm, ventricular rate of 87 bpm, no ectopy, LVH with QRS widening, QRS duration of 120 ms, normal QT interval, normal axis, no ST or T-wave abnormality Patient's labs and imaging studies are fairly unremarkable. 05/14/2020 Patient is seen and evaluated this morning continues to be lethargic although arousable and responding to questions and commands appropriately. Psychiatry has evaluated the patient and made recommendations and changes to medications. Patient is currently maintained on Depakote 1000 mg daily and will continue al fabian with IM Haldol as needed for agitation. Per nursing staff patient has not been aggressive or agitated and continues to be lethargic and arousable. Patient is tolerating diet and gets up with meals and has been walking to the bathroom with no difficulties. Labs are within normal limits. Patient awaiting to be seen by neurology who is recommending MRI. CT of the brain done yesterday showing no signs of intracranial hemorrhage with no mass effect or midline shift a negative computed tomography scan. Review of systems: Constitutional: Reports fatigue, no reports of fever, or chills Cardiovascular: No reports of chest pain or palpitations Respiratory: No reports of shortness of breath or cough GI: No reports of nausea, vomiting, or diarrhea : No reports of dysuria or retention Neurovascular: No reports of weakness or numbness, reports some shoulder tension All medications have been reviewed Objective - Vital Signs Vital signs: Vital Signs Temp 98 F 05/14/20 07:13 Pulse 85 05/14/20 07:13 Resp 14 01/25/21 07:13 BP 151/76 05/14/20 07:13 Pulse Ox 92 L 05/14/20 07:13 Intake & Output 05/13/20 05/14/20 05/14/20 18:59 06:59 18:59 Intake Total 300 Balance 300 Intake: Oral 300 Other: # Voids 2 1 - Exam Gen: This is a 55-year-old male asleep although arousable, alert and oriented 3, well-developed, well-nourished. Incarcerated with police stenographer at the bedside and a cuff of the lower extremity HEENT: Head is atraumatic, normocephalic. Pupils equal, round. Sclerae is anicteric. NECK: Supple. No JVD. No lymphadenopathy. No thyromegaly. LUNGS: Clear to auscultation. No wheezes or rhonchi. No intercostal retrac tions. HEART: Regular rate and rhythm. No murmur. ABDOMEN: Soft. Bowel sounds are present. No masses. No tenderness. EXTREMITIES: No pedal edema. No calf tenderness. NEUROLOGICAL: Patient is asleep although arousable, alert and oriented x3. Cranial nerves 2 through 12 are grossly intact. - Labs CBC & Chem 7: 05/13/20 05:26 05/13/20 05:26 Assessment and Plan Assessment: Altered mental status possibly secondary due to Cogentin and Depakote, psychiatry following made adjustments to medications and Cogentin was discontinued and Depakote was decreased BiPolar disorder/antisocial disorder History of alcohol use DVT prophylaxis: SCDs Full code Plan: Continue with Depakote and IM as needed Haldol for agitation. Neurology workup pending and awaiting for MRI of the cervical spine along with shoulder x-rays to be done for continued shoulder discomfort. Psychiatry has evaluated the patient made medication adjustments and we'll continue to follow as needed. Patient does not meet inpatient psychiatric requirements. Avoid TINNING MACHINE SET UP OPERATOR agents. Patient is incarcerated and has an officer at the bedside. Patient will be going back to [facility] upon discharge. Further recommendations to follow. Pos sible discharge in 24 hours.
--- NOTE | 2020-05-14 16:58 | MR ---
EXAMINATION TYPE: MR cervical spine wo con DATE OF EXAM: 05/14/2020 COMPARISON: None HISTORY: Neck pain, BUE weakness Multiplanar multiecho imaging of the cervical spine was performed with no contrast. Cervical vertebra have normal alignment. Disc spaces are fairly normal. Cervical spinal cord has norm al signal pattern. There is no edema. There is no evidence of cervical disc herniation. There is mini mal posterior disc bulging at C4-5 and C6-7. There is no spinal stenosis. There is no evidence of cer vical paraspinal mass. The brainstem appears intact. Facet joints are intact. Axial images limited sl ightly by motion. IMPRESSION: Minimal disc bulging. No spinal stenosis. No fracture.
--- NOTE | 2020-05-14 17:16 | XR ---
EXAMINATION TYPE: XR shoulder complete BILAT DATE OF EXAM: 05/14/2020 COMPARISON: NONE HISTORY: Pain and weakness TECHNIQUE: 3 views each shoulder FINDINGS: There is bilateral spurring of the AC joint. I see no fracture nor dislocation. Glenohumera l joints are intact. The shoulder joint spaces are fairly normal. There is minor spurring of the infe rior glenoid bobbi. IMPRESSION: Early osteoarthritic changes. No fracture seen.
[2020-05-15 01:20] LABS: Rheumatoid Factor, Qnt <4 IU/mL (0-15)
--- NOTE | 2020-05-15 12:31 | P.DS ---
Providers Date of admission: 05/12/20 20:35 Expected date of discharge: 05/14/20 Attending physician: Yrn Carson Consults: 05/12/20 20:21 Consult Physician Urgent Consulting Provider: Kasia Donald Consult Reason/Comments: altered mental status Do you want consulting provider notified?: Yes 05/13/20 03:49 Consult Physician Stat Consulting Provider: Pratik Choudhury Consult Reason/Comments: patient altered mental status Do you want consulting provider notified?: Yes Primary care physician: Stated None Hospital Course: Final diagnosis Altered mental status possibly or acute toxic encephalopathy secondary to Cogentin, improved BiPolar disorder/antisocial disorder History of alcohol use DVT prophylaxis: SCDs Full code Discharge disposition Patient is being discharged in a stable condition with guarded prognosis to [facility]. Patient will follow-up with primary care provider upon discharge. Patient will continue with Depakote 1000 mg at bed. Total time taken is greater than 35 minutes. Hospital course This is an 55-year-old male who was recently admitted with altered mental status and was being closely monitored. Patient was seen and evaluated by psychiatry recommending discontinuing Cogentin and continue with Depakote 1000 mg at bed. Patient also seen and evaluated by neurology recommending MRI of C-spine and shoulder x-rays as he was having some shoulder discomfort and neck pain. MRI showed minimal disc bulging noted at the C4 to 5 and C6 to 7 with no fractures noted. Shoulder x-rays reveal early osteoarthritic changes with no dislocation or fractures noted. Patient is currently more alert and awake. Patient is incarcerated at [facility] and will be returning there upon discharge. Officer at the bedside with the patient. Currently no reports of chest pain, shortness of breath, or palpitations. Patient is afebrile. No reports of nausea or vomiting and patient is tolerating diet. Patient will be discharged with executive vice president and chief operating officer as he is incarcerated and will be returning to [facility]. On exam vital signs are stable. Temp is 97.7F, pulse is 70, respirations are 16, blood pressure is 147/87, oxygen saturation is 96% on room air. Cardio S1, S2 are muffled. Respiratory shows diminished breath sounds at the bases with no wheezing or rhonchi noted. Abdomen is soft and nontender. Nervous system shows no focal deficits. Please refer to medication reconciliation sheet for a list of medications. Patient Condition at Discharge: Stable Plan - Discharge Summary Discharge Rx Participant: No New Discharge Prescriptions: New Divalproex ER [Depakote ER] 1,000 mg PO HS tab.er.24h Continue Omeprazole 20 mg PO DAILY Discontinued Benztropine Mesylate [Cogentin] 1 mg PO BID risperiDONE 4 mg PO BID Divalproex ER [Depakote ER] 1,000 mg PO HS Discharge Medication List Omeprazole 20 mg PO DAILY 05/12/20 [History] Divalproex ER [Depakote ER] 1,000 mg PO HS tab.er.24h 05/14/20 [Rx] Follow up Appointment(s)/Referral(s): None,Stated [Primary Care Provider] - 1-2 days Patient Instructions/Handouts: Brief Psychotic Disorder (DC) Activity/Diet/Wound Care/Special Instructions: Okay to discharge if MRI is negative Activity Limited until follow-up Patient is going back to [facility] Continue current diet Follow-up with primary care provider Discharge Disposition: DC/TRANSFER COURT/LAW
== END 2020-05-14 17:57 ==
LOC: EC 18:11 → 6NMEDSUR 20:35
PROVIDERS: ADMIT Hospitalist; ATTEND Hospitalist
DX: R41.82 Altered mental status, unspecified (principal); F31.9 Bipolar disorder, unspecified; Z72.811 Adult antisocial behavior; F10.10 Alcohol abuse, uncomplicated; R45.1 Restlessness and agitation; R53.83 Other fatigue; I51.7 Cardiomegaly; F17.210 Nicotine dependence, cigarettes, uncomplicated; F12.90 Cannabis use, unspecified, uncomplicated; R20.0 Anesthesia of skin; R53.1 Weakness; M19.012 Primary osteoarthritis, left shoulder; M19.011 Primary osteoarthritis, right shoulder; Z79.899 Other long term (current) drug therapy
CPT/HCPCS: 96361 ×2; 96374; 99285; 36415; 93005; 80164; 80053 ×2; 85652; 84443; 82607; 82140; 82550; 82746; 84484; 85025 ×2; 85610; 85730; 86140; 86431; 81003; 86780; 86038; 80306; 87635; 73030; 71045; 70450; 72141; G0378 ×3; G0480; J2060; 80320

== ENCOUNTER 2020-10-23 23:55 | Observation (INO) | payer BC, OTHER ==
[2020-10-24] MEDS ORDERED: SODIUM CHLORIDE 0.9% 1,000 ML IV STA ×2 (00:08)
--- NOTE | 2020-10-24 00:08 | ED ---
Altered Mental Status HPI - General Chief Complaint: Extremity Injury, Lower Stated Complaint: Right Side Pain Time Seen by Provider: 10/23/20 23:58 Source: patient, EMS, RN notes reviewed, old records reviewed Mode of arrival: EMS Limitations: altered mental status, physical limitation - History of Present Illness Initial Comments: This is a 55-year-old male DF for evaluation. Patient's brought in by EMS for right-sided pain. Patient moans: Shakes is a poor strain secondary to what appears to be choosing not to participate history of present illness. Per EMS history is obtained and patient is a recent halfway, possibly recent hospital admission MD Complaint: altered mental status, other (Not acting appropriately complaining of moaning and groaning, right-sided pain arm pain leg pain) -: unknown Severity: mild Consistency of Symptoms: waxing and waning Context: history of similar presentation Associated Symptoms: denies other symptoms - Related Data Home Medications Medication Instructions Recorded Confirmed Omeprazole 20 mg PO DAILY 05/12/20 10/24/20 Cyclobenzaprine [Flexeril] 10 mg PO TID PRN 10/24/20 10/24/20 Naproxen 500 mg PO TID PRN 10/24/20 10/24/20 Previous Rx's Medication Instructions Recorded Ferrous Sulfate [Feosol] 325 mg PO BID #60 tab 10/25/20 Pantoprazole Sodium [Protonix] 40 mg PO BID #60 tablet. 10/25/20 Sucralfate [Carafate] 1 gm PO ACHS #120 tablet 10/25/20 amLODIPine [Norvasc] 10 mg PO DAILY #30 tablet 10/25/20 Allergies Allergy/AdvReac Type Severity Reaction Status Date / Time No Known Allergies Allergy Verified 10/24/20 07:36 Review of Systems ROS Statement: Those systems with pertinent positive or pertinent negative responses have been documented in the HPI. ROS Other: All systems not noted in ROS Statement are negative. Past Medical History Past Medical History: Unable to Obtain History of Any Multi-Drug Resistant Organisms: Unobtainable Past Surgical History: Unable to Obtain Past Psychological History: Bipolar Smoking Status: Unknown if ever smoked Past Alcohol Use History: Abuse, Daily, Heavy Past Drug Use History: Marijuana - Past Family History Family Family Medical History: Unable to Obtain General Exam Limitations: altered mental status, physical limitation General appearance: alert, appears intoxicated, lethargic Head exam: Present: atraumatic, normocephalic, normal inspection Eye exam: Present: normal appearance, PERRL, EOMI. Absent: scleral icterus, conjunctival injection, periorbital swelling ENT exam: Present: normal exam, mucous membranes moist Neck exam: Present: normal inspection. Absent: tenderness, meningismus, lymp hadenopathy Respiratory exam: Present: normal lung sounds bilaterally. Absent: respiratory distress, wheezes, rales, rhonchi, stridor Cardiovascular Exam: Present: regular rate, normal rhythm, normal heart sounds. Absent: systolic murmur, diastolic murmur, rubs, gallop, clicks GI/Abdominal exam: Present: soft, normal bowel sounds. Absent: distended, tenderness, guarding, rebound, rigid Extremities exam: Present: normal inspection, full ROM, normal capillary refill. Absent: tenderness, pedal edema, joint swelling, calf tenderness Back exam: Present: normal inspection Neurological exam: Present: alert, oriented X3, CN II-XII intact Psychiatric exam: Present: normal affect, normal mood Skin exam: Present: warm, dry, intact, normal color. Absent: rash Course Vital Signs 10/24/20 10/24/20 10/24/20 00:03 01:19 02:00 Temperature 98.0 F Pulse Rate 103 H 78 97 Pulse Rate [ Right Dorsalis Pedis] Respiratory 17 16 17 Rate Blood Pressure 177/75 176/97 178/93 Blood Pressure [Left Arm] O2 Sat by Pulse 93 L 97 96 Oximetry 10/24/20 10/24/20 10/24/20 02:44 03:25 07:00 Temperature Pulse Rate 98 98 Pulse Rate [ 88 Right Dorsalis Pedis] Respiratory 17 18 18 Rate Blood Pressure 160/97 170/86 Blood Pressure 135/73 [Left Arm] O2 Sat by Pulse 99 100 Oximetry 10/24/20 14:11 Temperature 98.0 F Pulse Rate 98 Pulse Rate [ Right Dorsalis Pedis] Respiratory 18 Rate Blood Pressure 170/86 Blood Pressure [Left Arm] O2 Sat by Pulse 100 Oximetry - Reevaluation(s) Reevaluation #1: Medical record is reviewed Patient symptoms are improved here in the ER Patient is in no acute distress Patient informed results and questions answered Patient continues to be elucidated answering questions Medical Decision Making - Medical Decision Making 55 male a who is a poor historian just moans and groans coming in with right- sided pain upper and lower, patient does have a history here in the ER and a significant drop in hemoglobin from prior visit. Patient be admitted for possibility of GI bleed - Lab Data Result diagrams: 10/25/20 04:42 10/25/20 04:42 Lab Results 10/24/20 10/24/20 10/24/20 Range/Units 00:33 00:33 00:33 WBC 11.0 H (3.8-10.6) k/uL RBC 3.07 L (4.30-5.90) m/uL Hgb 7.4 L (13.0-17.5) gm/dL Hct 23.9 L (39.0-53.0) % MCV 77.6 L (80.0-100.0) fL MCH 24.0 L (25.0-35.0) pg MCHC 30.9 L (31.0-37.0) g/dL RDW 16.2 H (11.5-15.5) % Plt Count 389 (150-450) k/uL MPV 8.1 Neutrophils % 77 % Lymphocytes % 13 % Monocytes % 6 % Eosinophils % 3 % Basophils % 0 % Neutrophils # 8.4 H (1.3-7.7) k/uL Lymphocytes # 1.4 (1.0-4.8) k/uL Monocytes # 0.6 (0-1.0) k/uL Eosinophils # 0.3 (0-0.7) k/uL Basophils # 0.0 (0-0.2) k/uL Hypochromasia Marked Poikilocytosis Moderate Anisocytosis Slight Microcytosis Slight PT 10.4 (9.0-12.0) sec INR 1.0 (<1.2) APTT 23.5 (22.0-30.0) sec Sodium 136 L (137-145) mmol/L Potassium 3.9 (3.5-5.1) mmol/L Chloride 103 (98-107) mmol/L Carbon Dioxide 25 (22-30) mmol/L Anion Gap 8 mmol/L BUN 9 (9-20) mg/dL Creatinine 0.97 (0.66-1.25) mg/dL Est GFR (CKD-EPI)AfAm >90 (>60 ml/min/1.73 sqM) Est GFR (CKD-EPI)NonAf 88 (>60 ml/min/1.73 sqM) Glucose 128 H (74-99) mg/dL Plasma Lactic Acid Anselmo (0.7-2.0) mmol/L Calcium 10.1 (8.4-10.2) mg/dL Phosphorus 3.7 (2.5-4.5) mg/dL Magnesium 1.6 (1.6-2.3) mg/dL Total Bilirubin 0.2 (0.2-1.3) mg/dL AST 27 (17-59) U/L ALT 13 (4-49) U/L Alkaline Phosphatase 63 (38-126) U/L Creatine Kinase 219 H (55-170) U/L Troponin I (0.000-0.034) ng/mL NT-Pro-B Natriuret Pep pg/mL Total Protein 6.6 (6.3-8.2) g/dL Albumin 4.0 (3.5-5.0) g/dL Lipase 49 (23-300) U/L Urine Color Urine Appearance (Clear) Urine pH (5.0-8.0) Ur Specific [place] (1.001-1.035) Urine Protein (Negative) Urine Glucose (UA) (Negative) Urine Ketones (Negative) Urine Blood (Negative) Urine Nitrite (Negative) Urine Bilirubin (Negative) Urine Urobilinogen (<2.0) mg/dL Ur Leukocyte Esterase (Negative) Salicylates <1.0 mg/dL Acetaminophen <10.0 ug/mL Serum Alcohol <10 mg/dL 10/24/20 10/24/20 10/24/20 Range/Units 00:33 00:33 00:33 WBC (3.8-10.6) k/uL RBC (4.30-5.90) m/uL Hgb (13.0-17.5) gm/dL Hct (39.0-53.0) % MCV (80.0-100.0) fL MCH (25.0-35.0) pg MCHC (31.0-37.0) g/dL RDW (11.5-15.5) % Plt Count (150-450) k/uL MPV Neutrophils % % Lymphocytes % % Monocytes % % Eosinophils % % Basophils % % Neutrophils # (1.3-7.7) k/uL Lymphocytes # (1.0-4.8) k/uL Monocytes # (0-1.0) k/uL Eosinophils # (0-0.7) k/uL Basophils # (0-0.2) k/uL Hypochromasia Poikilocytosis Anisocytosis Microcytosis PT (9.0-12.0) sec INR (<1.2) APTT (22.0-30.0) sec Sodium (137-145) mmol/L Potassium (3.5-5.1) mmol/L Chloride (98-107) mmol/L Carbon Dioxide (22-30) mmol/L Anion Gap mmol/L BUN (9-20) mg/dL Creatinine (0.66-1.25) mg/dL Est GFR (CKD-EPI)AfAm (>60 ml/min/1.73 sqM) Est GFR (CKD-EPI)NonAf (>60 ml/min/1.73 sqM) Glucose (74-99) mg/dL Plasma Lactic Acid Anselmo 1.3 (0.7-2.0) mmol/L Calcium (8.4-10.2) mg/dL Phosphorus (2.5-4.5) mg/dL Magnesium (1.6-2.3) mg/dL Total Bilirubin (0.2-1.3) mg/dL AST (17-59) U/L ALT (4-49) U/L Alkaline Phosphatase (38-126) U/L Creatine Kinase (55-170) U/L Troponin I <0.012 (0.000-0.034) ng/mL NT-Pro-B Natriuret Pep pg/mL Total Protein (6.3-8.2) g/dL Albumin (3.5-5.0) g/dL Lipase (23-300) U/L Urine Color Light Yellow Urine Appearance Clear (Clear) Urine pH 5.5 (5.0-8.0) Ur Specific [place] 1.006 (1.001-1.035) Urine Protein Negative (Negative) Urine Glucose (UA) Negative (Negative) Urine Ketones Negative (Negative) Urine Blood Negative (Negative) Urine Nitrite Negative (Negative) Urine Bilirubin Negative (Negative) Urine Urobilinogen <2.0 (<2.0) mg/dL Ur Leukocyte Esterase Negative (Negative) Salicylates mg/dL Acetaminophen ug/mL Serum Alcohol mg/dL 10/24/20 Range/Units 00:33 WBC (3.8-10.6) k/uL RBC (4.30-5.90) m/uL Hgb (13.0-17.5) gm/dL Hct (39.0-53.0) % MCV (80.0-100.0) fL MCH (25.0-35.0) pg MCHC (31.0-37.0) g/dL RDW (11.5-15.5) % Plt Count (150-450) k/uL MPV Neutrophils % % Lymphocytes % % Monocytes % % Eosinophils % % Basophils % % Neutrophils # (1.3-7.7) k/uL Lymphocytes # (1.0-4.8) k/uL Monocytes # (0-1.0) k/uL Eosinophils # (0-0.7) k/uL Basophils # (0-0.2) k/uL Hypochromasia Poikilocytosis Anisocytosis Microcytosis PT (9.0-12.0) sec INR (<1.2) APTT (22.0-30.0) sec Sodium (137-145) mmol/L Potassium (3.5-5.1) mmol/L Chloride (98-107) mmol/L Carbon Dioxide (22-30) mmol/L Anion Gap mmol/L BUN (9-20) mg/dL Creatinine (0.66-1.25) mg/dL Est GFR (CKD-EPI)AfAm (>60 ml/min/1.73 sqM) Est GFR (CKD-EPI)NonAf (>60 ml/min/1.73 sqM) Glucose (74-99) mg/dL Plasma Lactic Acid Anselmo (0.7-2.0) mmol/L Calcium (8.4-10.2) mg/dL Phosphorus (2.5-4.5) mg/dL Magnesium (1.6-2.3) mg/dL Total Bilirubin (0.2-1.3) mg/dL AST (17-59) U/L ALT (4-49) U/L Alkaline Phosphatase (38-126) U/L Creatine Kinase (55-170) U/L Troponin I (0.000-0.034) ng/mL NT-Pro-B Natriuret Pep 197 pg/mL Total Protein (6.3-8.2) g/dL Albumin (3.5-5.0) g/dL Lipase (23-300) U/L Urine Color Urine Appearance (Clear) Urine pH (5.0-8.0) Ur Specific [place] (1.001-1.035) Urine Protein (Negative) Urine Glucose (UA) (Negative) Urine Ketones (Negative) Urine Blood (Negative) Urine Nitrite (Negative) Urine Bilirubin (Negative) Urine Urobilinogen (<2.0) mg/dL Ur Leukocyte Esterase (Negative) Salicylates mg/dL Acetaminophen ug/mL Serum Alcohol mg/dL - EKG Data -: EKG Interpreted by Me (EKG shows sinus tachycardia 104. 190 QRS 114 QTc 47.) - Radiology Data Radiology results: report reviewed (CTA chest CT abdomen and pelvis negative for acute disease), image reviewed Disposition Clinical Impression: Altered mental status, Anemia, Chronic pain Disposition: ADMITTED IP TO THIS HOSP Condition: Fair Is patient prescribed a controlled substance at d/c from ED?: No
[2020-10-24] MEDS ORDERED: KETOROLAC 15 MG/ML 1 ML VIAL IVP STA (00:09)
[2020-10-24 00:46] LABS: Anisocytosis Slight; Basophils % (A) 0 %; Eosinophils # (A) 0.3 k/uL (0-0.7); Eosinophils % (A) 3 %; HCT 23.9 % (39.0-53.0); HGB 7.4 gm/dL (13.0-17.5); Hypochromasia Marked; Lymphocytes # (A) 1.4 k/uL (1.0-4.8); Lymphocytes % (A) 13 %; MCHC 30.9 g/dL (31.0-37.0); MCV 77.6 fL (80.0-100.0); Mean Platelet Volume 8.1; Microcytosis Slight; Monocytes # (A) 0.6 k/uL (0-1.0); Monocytes % (A) 6 %; Neutrophils # (A) 8.4 k/uL (1.3-7.7); Neutrophils % (A) 77 %; Platelet Count 389 k/uL (150-450); Poikilocytosis Moderate; RBC 3.07 m/uL (4.30-5.90); RDW 16.2 % (11.5-15.5)
[2020-10-24 01:12] LABS: AST 27 U/L (17-59); African American GFR (CKD) >90 (>60 ml/min/1.73 sqM); Alkaline Phosphatase 63 U/L (38-126); Blood Urea Nitrogen 9 mg/dL (9-20); Calcium 10.1 mg/dL (8.4-10.2); Carbon Dioxide 25 mmol/L (22-30); Creatine Kinase 219 U/L (55-170); Glucose 128 mg/dL (74-99); Non-African American GFR(CKD) 88 (>60 ml/min/1.73 sqM); Phosphorus 3.7 mg/dL (2.5-4.5); Total Bilirubin 0.2 mg/dL (0.2-1.3); Total Protein 6.6 g/dL (6.3-8.2)
[2020-10-24 01:13] LABS: ALT 13 U/L (4-49); Acetaminophen <10.0 ug/mL; Alcohol <10 mg/dL; Anion Gap 8 mmol/L; Chloride 103 mmol/L (98-107); Lipase 49 U/L (23-300); Magnesium 1.6 mg/dL (1.6-2.3); Potassium 3.9 mmol/L (3.5-5.1); Salicylate <1.0 mg/dL; Sodium 136 mmol/L (137-145)
[2020-10-24 01:24] LABS: Partial Thromboplastin Time 23.5 sec (22.0-30.0); Prothrombin Time 10.4 sec (9.0-12.0)
[2020-10-24 02:04] LABS: Appearance,Urine Clear (Clear); Bilirubin,Urine Negative (Negative); Blood,Urine Negative (Negative); Color,Urine Light Yellow; Glucose,Urine (UA) Negative (Negative); Ketones,Urine Negative (Negative); Leukocyte Esterase,Urine Negative (Negative); Nitrite,Urine Negative (Negative); PH, Urine 5.5 (5.0-8.0); Protein,Urine Negative (Negative); Specific Gravity,Urine 1.006 (1.001-1.035); Urobilinogen,Urine <2.0 mg/dL (<2.0)
--- NOTE | 2020-10-24 02:09 | CT ---
EXAMINATION TYPE: CT abdomen pelvis w con DATE OF EXAM: 10/24/2020 COMPARISON: None HISTORY: Right flank pain/poor historian CT DLP: 1831 mGycm Automated exposure control for dose reduction was used. CONTRAST: Performed with IV Contrast, patient injected with 100 mL of Isovue 370. Images obtained from the diaphragm to the floor the pelvis with IV contrast. There is mild subsegmental atelectasis at the lung bases. There is no pleural effusion. There is hiat al hernia. There is no pericardial effusion. Heart appears borderline enlarged. Liver spleen stomach appear intact. There is no sign of pancreatic mass. Gallbladder is intact. The b ile ducts are not dilated. There is no adrenal mass. There is normal contrast opacification of the kidneys. There is no hydronep hrosis. Ureters are not dilated. There is no retroperitoneal adenopathy. Bladder distends smoothly. T here is no inguinal hernia. There is no free fluid in the pelvis. There is no mesenteric edema. There is no ascites or free air. There is no sign of a bowel obstructio n. Appendix is posterior and lateral and appears normal. The lumbar vertebra have fairly normal alignment. There is mild multilevel degenerative disc space na rrowing and spur formation. There is T11 and T10 mild anterior wedging 15% that appears old. The bony pelvis is intact. The hip joints are intact. There is no hip dysplasia. The acetabula appear intact. IMPRESSION: Mild subsegmental atelectasis at the lung bases. Borderline cardiomegaly. No acute abnormality within the abdomen and pelvis. Lumbar spondylotic changes. I do not see a cause for right flank pain. No renal stone or obstruction. Normal appendix.
[2020-10-24] MEDS ORDERED: NALOXONE 0.4 MG/ML 1 ML VIAL IV PRN (02:15)
--- NOTE | 2020-10-24 02:18 | CT ---
EXAMINATION TYPE: CT angio chest DATE OF EXAM: 10/24/2020 COMPARISON: None HISTORY: Right flank pain/poor historian CT DLP: 1831 mGycm Automated exposure control for dose reduction was used. CONTRAST: Performed with IV Contrast, patient injected with 100 mL of Isovue 370. There are 3-D post processed images. There is groundglass interstitial infiltrate throughout both lungs. There is no evidence of a pulmona ry mass. There is no pleural effusion or pneumothorax. Heart is slightly enlarged. There is hiatal he rnia. There are no hilar masses. There is no mediastinal adenopathy. Thoracic aorta is intact. There is no aneurysm or dissection. Ascending aorta measures 3.6 cm. I see no evidence of filling defect in the pulmonary arteries. There is suboptimal contrast in the sm aller branches. The thoracic vertebra show normal alignment. There is no compression fracture. There is mild spurring of the endplates. Sternum is intact. I see no evidence of acute a rib fracture. There is evidence fo r old healed fractures at the right costovertebral junction in the lower thoracic spine. IMPRESSION: No evidence of pulmonary embolism. Groundglass pulmonary interstitial infiltrates. Mild cardiomegaly. No suspicious pulmonary mass. Lung disease is likely inflammatory.
[2020-10-24] MEDS: MORPHINE SULFATE 4 MG/ML SYRINGE IV PRN ×2 (02:39→17:15)
[2020-10-24] MEDS ORDERED: ONDANSETRON 4 MG/2 ML VIAL IVP PRN (02:40)
--- NOTE | 2020-10-24 04:33 | P.HPIM ---
History of Present Illness H&P Date: 10/24/20 Chief Complaint: Abdominal pain Patient was unable to provide any meaningful history he seems to be sleeping when I wake him up he mumbles a few words, makes eye contact, yells and then goes back to sleep. He refused to talk or give any meaningful history at this time however he allowed me to examine him History obtained by talking with the ER doctor and RN in charge of his care. Seems like he came in complaining of abdominal pain denying any GI bleeding denies any fevers or chills denies any coughing or respiratory problems despite pain control in the ED he kept complaining of severe abdominal pain eventually. Blood work came back showing severe acute drop in his hemoglobin to 7.4 from a baseline of 13 about 6 months ago again patient was denying any GI bleeding or melena. MCV was 77 suggesting microcytosis and possible underlying iron deficiency EKG showed sinus tachycardia blood pressure was elevated CT angiogram for chest done and CT of the abdomen which failed to show any significant pathology however groundglass appearance of pulmonary interstitial infiltrate was identified which is nonspecific. Patient was kept for further management to rule out any GI bleeding Of note patient was here in April 2020 for altered mental status with bipolar disorder and alcohol abuse. Review of Systems ROS unobtainable: due to mental status Past Medical History Past Medical History: Unable to Obtain History of Any Multi-Drug Resistant Organisms: Unobtainable Past Surgical History: Unable to Obtain Past Psychological History: Bipolar Smoking Status: Unknown if ever smoked Past Alcohol Use History: Abuse, Daily, Heavy Past Drug Use History: Marijuana - Past Family History Family Family Medical History: Unable to Obtain Medications and Allergies Home Medications Medication Instructions Recorded Confirmed Type Omeprazole 20 mg PO DAILY 05/12/20 05/12/20 History Divalproex ER [Depakote ER] 1,000 mg PO HS tab.er.24h 05/14/20 Rx Allergies Allergy/AdvReac Type Severity Reaction Status Date / Time No Known Allergies Allergy Verified 05/12/20 19:42 Physical Exam Vitals: Vital Signs Temp Pulse Resp BP Pulse Ox 10/24/20 01:19 78 16 176/97 97 10/24/20 00:03 98.0 F 103 H 17 177/75 93 L Intake and Output 10/23/20 10/23/20 10/24/20 14:59 22:59 06:59 Other: Weight 95.254 kg Constitutional: Patient arousable but goes back to sleep immediately and refuses to wake up and interactive me however he gave me permission to do physical exam Eyes: Patient resisted opening eyes ENMT: NC/AT Patient did not cooperate with opening mouth for exam Neck: Supple, , no masses, or JVD No carotid bruits No thyromegaly Lungs: Clear to auscultation Clear to percussion Normal respiratory effort, no accessory muscle use Cardiovascular: Heart regular in rate and rhythm, No murmurs, gallops, or rubs No peripheral edema Abdominal: Soft Nontender, no guarding, rebound or rigidity Abdomen moving with respiration Normoactive bowel sounds No hepatomegaly, No splenomegaly No palpable mass No abdominal wall hernia noted Skin: Normal temperature, tone, texture, turgor No induration No subcutaneous nodules No rash, lesions No ulcers Extremities: No digital cyanosis No clubbing Pedal pulses intact and symmetrical Radial pulses intact and symmetrical No calf tenderness Psychiatric: Patient sleeping refusing to participate in exam Neuro again patient refuses to participate in exam Lymphatics: no palpable cervical or supraclavicular , or inguinal lymph nodes Results CBC & Chem 7: 10/24/20 00:33 10/24/20 00:33 Labs: Abnormal Lab Results - Last 24 Hours (Table) 10/24/20 10/24/20 Range/Units 00:33 00:33 WBC 11.0 H (3.8-10.6) k/uL RBC 3.07 L (4.30-5.90) m/uL Hgb 7.4 L (13.0-17.5) gm/dL Hct 23.9 L (39.0-53.0) % MCV 77.6 L (80.0-100.0) fL MCH 24.0 L (25.0-35.0) pg MCHC 30.9 L (31.0-37.0) g/dL RDW 16.2 H (11.5-15.5) % Neutrophils # 8.4 H (1.3-7.7) k/uL Sodium 136 L (137-145) mmol/L Glucose 128 H (74-99) mg/dL Creatine Kinase 219 H (55-170) U/L Assessment and Plan Assessment: Severe acute anemia rule out GI bleeding Severe epigastric abdominal pain Plan PPI twice a day IV Monitor hemoglobin every 8 hours GI consultation Fecal occult blood testing Nothing by mouth Pain control IV fluid hydration DVT prophylaxis mechanical Anticipated length of stay less than 2 midnights Anticipated discharge to home Patient is full code
[2020-10-24] MEDS ORDERED: cloNIDine HCL 0.2 MG TAB PO PRN (04:37)
[2020-10-24] MEDS ORDERED: LORazepam 2 MG/ML INJ IV PRN ×3 (04:37)
[2020-10-24] MEDS ORDERED: CYCLOBENZAPRINE 10 MG TAB PO PRN (08:11)
[2020-10-24] MEDS ORDERED: NON FORMULARY DRUG (Omeprazole [Omeprazole] 20 MG Capsule.Dr) PO SCH (09:00)
[2020-10-24] MEDS ORDERED: PANTOPRAZOLE 40 MG/10 ML VIAL IV SCH (09:00)
[2020-10-24 10:04] LABS: Anisocytosis Slight; Basophils % (A) 0 %; Eosinophils # (A) 0.3 k/uL (0-0.7); Eosinophils % (A) 4 %; HCT 24.2 % (39.0-53.0); HGB 7.4 gm/dL (13.0-17.5); Hypochromasia Marked; Lymphocytes # (A) 1.5 k/uL (1.0-4.8); Lymphocytes % (A) 20 %; MCH 23.9 pg (25.0-35.0); MCHC 30.6 g/dL (31.0-37.0); MCV 78.3 fL (80.0-100.0); Mean Platelet Volume 6.9; Microcytosis Slight; Monocytes # (A) 0.6 k/uL (0-1.0); Monocytes % (A) 8 %; Neutrophils # (A) 4.9 k/uL (1.3-7.7); Neutrophils % (A) 66 %; Platelet Count 383 k/uL (150-450); Poikilocytosis Moderate; RBC 3.09 m/uL (4.30-5.90); RDW 16.2 % (11.5-15.5); WBC 7.4 k/uL (3.8-10.6)
[2020-10-24] MEDS: PANTOPRAZOLE 40 MG/10 ML VIAL IV SCH ×2 (10:05→20:44)
[2020-10-24 10:41] LABS: Reticulocyte % 3.1 % (0.5-2.0)
--- NOTE | 2020-10-24 13:00 | P.CONS ---
History of Present Illness - Reason for Consult Consult date: 10/24/20 Anemia, GI bleed Requesting physician: Ismael Shaikh - Chief Complaint Weakness, right sided pain - History of Present Illness This is a 55-year-old male who presented to the emergency department yesterday evening with complaints of right-sided flank pain and lower extremity injury. He has a past medical history of bipolar disease, previous GI bleed, alcohol abuse and GERD. On admission he was noted to have a hemoglobin of 7.4 which is a drop from 13 in April of this year. States he has been having frequent acid reflux and has a history of a hiatal hernia for which he takes omeprazole and Tums as needed. He states he had a previous colonoscopy approximately 1 year ago in [place] which he stated was normal. He has a history of constipation, states he has dark stool but not black. He does not take any iron. He does take ibuprofen daily for chronic pain, 800 mg daily. He does state he did have some vomiting yesterday and 2 days prior which was just regurgitated food, no hematemesis. As part of his workup in the emergency department he underwent a CT of the abdomen and pelvis that showed no acute abnormality with the abdomen and pelvis. Dates he is currently feeling somewhat better, he eating breakfast and denies any nausea or vomiting. Admission labs WBC 11, hemoglobin 7.4, hematocrit 23.9, platelet count 389,000, INR 1.0, total bilirubin 0.2, alkaline phosphatase 63, AST 27, ALT 13, lipase 49. Review of Systems REVIEW OF SYSTEMS: CARDIOPULMONARY: No chest pain or shortness of breath. Gastrointestinal: Right flank pain and epigastric pain. No nausea or vomiting. No hematemesis, coffee-ground emesis. No rectal bleeding, or melena. Reports constipation. GENITOURINARY: No dysuria or hematuria. MUSCULOSKELETAL: Reports normal range of motion., Joint pain. SKIN: No rashes. No jaundice. ENDOCRINE: No chills, fevers. No excessive weight gain or loss. No polydipsia or polyuria. PSYCHIATRIC: Unremarkable. NEUROLOGY: Mental status on admission. Currently alert and oriented 3. Denies dizziness, headache. ENT: Vision unremarkable. CONSTITUTIONAL: No recent weight loss. No fever, chills, night sweats. Complaints of weakness. Past Medical History Past Medical History: Unable to Obtain History of Any Multi-Drug Resistant Organisms: Unobtainable Past Surgical History: Unable to Obtain Past Anesthesia/Blood Transfusion Reactions: No Reported Reaction Past Psychological History: Bipolar Smoking Status: Unknown if ever smoked Past Alcohol Use History: Abuse, Daily, Heavy Past Drug Use History: Marijuana - Past Family History Family Family Medical History: Unable to Obtain Medications and Allergies Home Medications Medication Instructions Recorded Confirmed Type Omeprazole 20 mg PO DAILY 05/12/20 10/24/20 History Cyclobenzaprine [Flexeril] 10 mg PO TID PRN 10/24/20 10/24/20 History Naproxen 500 mg PO TID PRN 10/24/20 10/24/20 History Allergies Allergy/AdvReac Type Severity Reaction Status Date / Time No Known Allergies Allergy Verified 10/24/20 07:36 Physical Exam Vitals: Vital Signs Temp Pulse Pulse Resp BP BP Pulse Ox 10/24/20 07:00 88 18 135/73 10/24/20 03:25 98 18 170/86 100 10/24/20 02:44 98 17 160/97 99 10/24/20 02:00 97 17 178/93 96 10/24/20 01:19 78 16 176/97 97 10/24/20 00:03 98.0 F 103 H 17 177/75 93 L Intake and Output 10/23/20 10/24/20 10/24/20 22:59 06:59 14:59 Output Total 0 Balance 0 Output: Urine/Stool Mix 0 Other: Voiding Method Toilet Urinal Weight 95.254 kg General appearance: The patient is alert, oriented, appears in no acute distress. HET: Head is normocephalic and atraumatic. Conjunctiva pink. Sclera anicteric. Neck: Supple without lymphadenopathy. Trachea midline. Heart: S1 S2. Regular rate and rhythm. Lungs: Clear to auscultation. Abdomen: Soft, mild epigastric tenderness, nondistended with bowel sounds. No guarding or rigidity. Skin: No rashes. No jaundice. Extremities: Normal skin color and turgor. No pedal edema. Neurological: No focal deficits. Alert and oriented 3.. Results CBC & Chem 7: 10/24/20 09:21 10/24/20 00:33 Labs: Abnormal Lab Results - Last 24 Hours (Table) 10/24/20 10/24/20 10/24/20 Range/Units 00:33 00:33 09:21 WBC 11.0 H (3.8-10.6) k/uL RBC 3.07 L 3.09 L (4.30-5.90) m/uL Hgb 7.4 L 7.4 L (13.0-17.5) gm/dL Hct 23.9 L 24.2 L (39.0-53.0) % MCV 77.6 L 78.3 L (80.0-100.0) fL MCH 24.0 L 23.9 L (25.0-35.0) pg MCHC 30.9 L 30.6 L (31.0-37.0) g/dL RDW 16.2 H 16.2 H (11.5-15.5) % Neutrophils # 8.4 H (1.3-7.7) k/uL Retic Count (0.5-2.0) % Sodium 136 L (137-145) mmol/L Glucose 128 H (74-99) mg/dL Creatine Kinase 219 H (55-170) U/L 10/24/20 Range/Units 09:21 WBC (3.8-10.6) k/uL RBC (4.30-5.90) m/uL Hgb (13.0-17.5) gm/dL Hct (39.0-53.0) % MCV (80.0-100.0) fL MCH (25.0-35.0) pg MCHC (31.0-37.0) g/dL RDW (11.5-15.5) % Neutrophils # (1.3-7.7) k/uL Retic Count 3.1 H (0.5-2.0) % Sodium (137-145) mmol/L Glucose (74-99) mg/dL Creatine Kinase (55-170) U/L CT scan - abdomen: report reviewed (Mild subsegmental atelectasis at the lung bases. Borderline cardiomegaly. No acute abnormality within the abdomen and pelvis. Lumbar spondylotic changes. No cause for right flank pain. Renal stone or obstruction. Normal appendix.) CT scan - chest: report reviewed (CTA chest with no evidence of pulmonary em bolism) Assessment and Plan (1) Anemia Narrative/Plan: 55-year-old male with a past medical history including alcohol abuse, bipolar disorder, GERD, and previous GI bleed requiring blood transfusion presented to the hospital with altered mental status with complaints of weakness, lower extremity injury and right flank pain. He was found to have a hemoglobin of 7.4, which was a significant drop from previous hemoglobin in April of this year at 13. Patient states he has a history of previous GI bleed requiring blood transfusion, hiatal hernia, states his last colonoscopy was approximately one year ago in [place] which she states was normal. He has had a previous EGD many years ago. Does state that he gets frequent acid reflux and takes omeprazole and Tums as needed. Patient has a microcytic anemia, we'll proceed with EGD to rule out upper GI bleed, especially in light of heavy alcohol use and daily NSAID use. Possible etiologies include peptic ulcer disease, AVM, gastritis, esophagitis, or other possible etiology. Current Visit: Yes Status: Acute Code(s): D64.9 - ANEMIA, UNSPECIFIED SNOMED Code(s): 753057844 (2) Epigastric pain Current Visit: Yes Status: Acute Code(s): R10.13 - EPIGASTRIC PAIN SNOMED Code(s): 71330167 (3) GERD (gastroesophageal reflux disease) Current Visit: Yes Status: Acute Code(s): K21.9 - GASTRO-ESOPHAGEAL REFLUX DISEASE WITHOUT ESOPHAGITIS SNOMED Code(s): 726599058 Plan: 1. Nothing by mouth after midnight 2. Anemia panel ordered 3. Protonix 40 mg twice a day 4. CT of abdomen and pelvis reviewed 5. Will proceed with EGD tomorrow, procedure discussed in detail with patient including risks and benefits. Patient verbalized understanding and would like to proceed with procedure. 6. Daily CBC Thank you for this consultation, we will continue to follow. Dr. Bentley I agree with the dictator's note, documented as a scribe by Veronica Cheney.
--- NOTE | 2020-10-24 14:03 | P.PN ---
Subjective Progress Note Date: 10/24/20 Patient was seen and evaluated by me this morning. He appeared sleepy but easily arousable. He seems to be a very poor historian. He denies any complaints this morning. Objective - Vital Signs Vital signs: Vital Signs Temp 98.0 F 10/24/20 00:03 Pulse 88 10/24/20 07:00 Resp 18 10/24/20 07:00 BP 135/73 10/24/20 07:00 Pulse Ox 100 10/24/20 03:25 Intake & Output 10/23/20 10/24/20 10/24/20 18:59 06:59 18:59 Output Total 0 Balance 0 Weight 95.254 kg Output: Urine/Stool Mix 0 Other: Voiding Method Toilet Urinal - Exam General: The patient is awake and alert, in no distress Eye: there is normal conjunctiva bilaterally. Neck: The neck is supple, there is no JVD. Cardiovascular: Normal S1-S2, no S3-S4, no murmurs. Respiratory: Lungs clear to auscultation bilaterally Gastrointestinal: Abdomen is soft, nontender Musculoskeletal: There is no pedal edema. Neurological:. Speech is normal. Skin: Skin is warm and dry - Labs CBC & Chem 7: 10/24/20 09:21 10/24/20 00:33 Labs: Abnormal Lab Results - Last 24 Hours (Table) 10/24/20 10/24/20 10/24/20 Range/Units 00:33 00:33 09:21 WBC 11.0 H (3.8-10.6) k/uL RBC 3.07 L 3.09 L (4.30-5.90) m/uL Hgb 7.4 L 7.4 L (13.0-17.5) gm/dL Hct 23.9 L 24.2 L (39.0-53.0) % MCV 77.6 L 78.3 L (80.0-100.0) fL MCH 24.0 L 23.9 L (25.0-35.0) pg MCHC 30.9 L 30.6 L (31.0-37.0) g/dL RDW 16.2 H 16.2 H (11.5-15.5) % Neutrophils # 8.4 H (1.3-7.7) k/uL Retic Count (0.5-2.0) % Sodium 136 L (137-145) mmol/L Glucose 128 H (74-99) mg/dL Creatine Kinase 219 H (55-170) U/L 10/24/20 Range/Units 09:21 WBC (3.8-10.6) k/uL RBC (4.30-5.90) m/uL Hgb (13.0-17.5) gm/dL Hct (39.0-53.0) % MCV (80.0-100.0) fL MCH (25.0-35.0) pg MCHC (31.0-37.0) g/dL RDW (11.5-15.5) % Neutrophils # (1.3-7.7) k/uL Retic Count 3.1 H (0.5-2.0) % Sodium (137-145) mmol/L Glucose (74-99) mg/dL Creatine Kinase (55-170) U/L Assessment and Plan Assessment: This is a 55-year-old male with past medical history noted below who presented to the emergency room with abdominal pain. Patient was evaluated in the ER and admitted to the hospital for further management of his medical problems noted below. 1. Acute anemia, exact urology unclear. Possibly acute on chronic GI bleed. Patient was seen and evaluated by GI. Plan for EGD in the morning. Fecal occult blood test ordered but not done. Transfuse as needed for hemoglobin less than 7. 2. Hypertensive urgency, blood pressure may not well controlled. I would start the patient on Norvasc 5 mg daily 3. History of alcohol abuse, patient denies drinking alcohol for several weeks. He is maintained on Ativan as needed per CIWA protocol. Started on m ultivitamin and thiamine. 4. Abdominal pain on presentation, now resolved. Exact etiology unclear. Computed tomography scan of the abdomen and pelvis with no acute findings Today, I reviewed his medication list and lab work results. Continue current regimen. Nothing by mouth after midnight for EGD in the morning.
[2020-10-24] MEDS: amLODIPine 5 MG TAB PO SCH (14:43)
[2020-10-24] MEDS: THIAMINE 100 MG TAB PO SCH (17:16)
[2020-10-24 22:44] LABS: % Iron Saturation 1.88 (15.00-50.00); Ferritin 4.9 ng/mL (22.0-322.0); Folate, Serum 14.4 ng/mL
[2020-10-25] MEDS: PANTOPRAZOLE 40 MG/10 ML VIAL IV SCH (07:31)
[2020-10-25] MEDS ORDERED: SODIUM FERRIC GLUCONAT-SUCROSE 125 MG in SODIUM CHLORIDE 0.9% 100 ML IVPB SCH (09:00)
[2020-10-25] MEDS: amLODIPine 5 MG TAB PO SCH (09:14)
[2020-10-25 09:24] LABS: Basophils # (A) 0.05 X 10*3/uL (0.00-0.10); Basophils % (A) 0.6 %; Eosinophils # (A) 0.32 X 10*3/uL (0.04-0.35); Eosinophils % (A) 4.1 %; HCT 25.6 % (39.6-50.0); HGB 7.2 g/dL (13.0-17.0); Lymphocytes # (A) 1.62 X 10*3/uL (0.90-5.00); Lymphocytes % (A) 20.6 %; MCHC 28.1 g/dL (32.0-37.0); MCV 81.8 fL (80.0-97.0); Mean Platelet Volume 9.5 fL (9.5-12.2); Monocytes # (A) 0.77 X 10*3/uL (0.20-1.00); Monocytes % (A) 9.8 %; Neutrophils # (A) 5.08 X 10*3/uL (1.80-7.70); Neutrophils % (A) 64.6 %; Platelet Count 436 X 10*3/uL (140-440); RBC 3.13 X 10*6/uL (4.40-5.60); RDW 16.4 % (11.5-14.5); WBC 7.86 X 10*3/uL (4.50-10.00)
[2020-10-25 09:51] LABS: Albumin 4.1 g/dL (3.80-4.90); Albumin/Globulin Ratio 1.95 (1.60-3.17); Anion Gap 5.8 mmol/L (4.00-12.00); Calcium 9.7 mg/dL (8.7-10.3); Carbon Dioxide 25.2 mmol/L (21.6-31.8); Globulin 2.1 g/dL (1.6-3.3); Magnesium 2.2 mg/dL (1.5-2.4); Non-African American GFR(CKD) 95.8 (60.0-200.0); Phosphorus 2.4 mg/dL (2.4-5.1); Potassium 4.4 mmol/L (3.5-5.5); Total Bilirubin 0.3 mg/dL (0.3-1.2); Total Protein 6.2 g/dL (6.2-8.2)
[2020-10-25] MEDS ORDERED: PROPOFOL 10 MG/ML 20 ML VIAL IV ONE (11:55)
[2020-10-25] MEDS ORDERED: LIDOCAINE 1% INJ 10MG/ML (20 ML MDV) ONE (11:55)
[2020-10-25] MEDS ORDERED: IV FLUID CONTINUATION 1,000 ML IV ONE (12:00)
--- NOTE | 2020-10-25 12:22 | P.PCN ---
Date of Procedure: 10/25/20 Description of Procedure: BRIEF HISTORY: 55-year-old male who presented to the emergency department yesterday evening with complaints of right-sided flank pain and lower extremity injury. He has a past medical history of bipolar disease, previous GI bleed, alcohol abuse and GERD. On admission he was noted to have a hemoglobin of 7.4 which is a drop from 13 in April of this year. States he has been having frequent acid reflux and has a history of a hiatal hernia for which he takes omeprazole and Tums as needed. He states he had a previous colonoscopy approximately 1 year ago in [place] which he stated was normal. He has a history of constipation, states he has dark stool but not black. He does not take any iron. He does take ibuprofen daily for chronic pain, 800 mg daily. He does state he did have some vomiting yesterday and 2 days prior which was just regurgitated food, no hematemesis. As part of his workup in the emergency department he underwent a CT of the abdomen and pelvis that showed no acute abnormality with the abdomen and pelvis. Dates he is currently feeling somewhat better, he eating breakfast and denies any nausea or vomiting. PROCEDURE PERFORMED: Esophagogastroduodenoscopy with biopsy. PREOPERATIVE DIAGNOSIS: Iron deficiency anemia, melena. ESTIMATED BLOOD LOSS: Minimal. IV sedation per anesthesia. PROCEDURE: After informed consent was obtained, the patient was brought into the endoscopy unit. IV sedation was administered by Anesthesia under continuous monitoring. Initially the Olympus GIF-190 video endoscope was inserted into the mouth. Esophagus intubated without any difficulty. It was gradually advanced into the stomach and duodenum and carefully examined. The bulb and the second part of the duodenum appeared normal, With biopsies taken. The scope at this time was withdrawn to the stomach, adequately insufflated with air, and upon careful examination, mucosa of the antrum, body, cardia and the fundus appeared normal, Except for some mild scattered erythema in the antrum body suggestive of mild gastritis of biopsy of the antrum and body taken. The scope was then withdrawn into the esophagus. The GE junction was located at 39 cm from the incisors, With a 4 cm hiatal hernia noted. 3 cm of salmon-colored mucosa in the distal esophagus suspicious for Cabral's esophagus with biopsies taken of the lower esophagus. The esophagus otherwise appeared normal, Except for a linear 3 mm nonbleeding distal esophageal ulcer at the GE junction was biopsied. There were no erosions or ulcerations seen and the patient tolerated the procedure well. IMPRESSION: 1. Mild gastritis. 2. Moderate hiatal hernia. 3. Small linear nonbleeding distal esophageal ulcer. 4. Suspected short segment Cabral's esophagus. 5. Biopsies of the duodenum, antrum body and lower esophagus and esophageal ulcer. RECOMMENDATIONS: The findings of this examination were discussed with the patient.. Okay for diet. Continue Protonix 40 mg twice daily. Carafate 4 times a day before meals and at bedtime added. Avoid NSAID use. Continue iron supplementation.
[2020-10-25] MEDS ORDERED: SUCRALFATE 1 GM TAB PO SCH (12:30)
[2020-10-25] MEDS: THIAMINE 100 MG TAB PO SCH (12:52)
--- NOTE | 2020-10-25 13:27 | P.DS ---
Providers Date of admission: 10/24/20 02:15 Expected date of discharge: 10/25/20 Attending physician: Ismael Shaikh MD Consults: 10/24/20 04:36 Consult Physician Routine Consulting Provider: Jamel Bentley Consult Reason/Comments: acute anemia, epigastric abd pain Do you want consulting provider notified?: Yes, Notify in am Primary care physician: Stated None Hospital Course: This is a 55-year-old male with past medical history noted below who presented to the emergency room with abdominal pain. Patient was evaluated in the ER and admitted to the hospital for further management of his medical problems noted below. 1. Acute on chronic iron deficiency anemia: Possibly acute on chronic GI bleed. Patient received IV iron here in the hospital and continue iron supplement at home. Hemoglobin stabilized around 7.3. 2. Hypertensive urgency: blood pressure improved. 3. History of alcohol abuse, patient denies drinking alcohol for several weeks. No evidence of withdrawal 4. Abdominal pain on presentation, now resolved. Exact etiology unclear. Computed tomography scan of the abdomen and pelvis with no acute findings Patient was seen and evaluated by GI during this admission. He underwent an EGD showing mild gastritis, moderate hiatal hernia, small linear nonbleeding distal esophageal ulcer, and suspected short segment of Cabral's esophagus. Patient will be discharged home on Protonix 40 mg twice daily and Carafate ACHS as directed by GI. He will follow-up in the office as directed. Patient was seen and evaluated by me on the day of discharge. He did not have any concerns. I explained to him plan of care. Physical exam: General: The patient is awake and alert, in no distress Eye: there is normal conjunctiva bilaterally. Neck: The neck is supple, there is no JVD. Cardiovascular: Normal S1-S2, no S3-S4, no murmurs. Respiratory: Lungs clear to auscultation bilaterally Gastrointestinal: Abdomen is soft, nontender Musculoskeletal: There is no pedal edema. Neurological:. Speech is normal. Skin: Skin is warm and dry Patient Condition at Discharge: Fair Plan - Discharge Summary New Discharge Prescriptions: New Ferrous Sulfate [Feosol] 325 mg PO BID #60 tab amLODIPine [Norvasc] 10 mg PO DAILY #30 tablet Sucralfate [Carafate] 1 gm PO ACHS #120 tablet Pantoprazole Sodium [Protonix] 40 mg PO BID #60 tablet.dr Mark Cyclobenzaprine [Flexeril] 10 mg PO TID PRN PRN Reason: Muscle Spasm No Action Omeprazole 20 mg PO DAILY Naproxen 500 mg PO TID PRN PRN Reason: Pain Discharge Medication List Omeprazole 20 mg PO DAILY 05/12/20 [History] Cyclobenzaprine [Flexeril] 10 mg PO TID PRN 10/24/20 [History] Naproxen 500 mg PO TID PRN 10/24/20 [History] Ferrous Sulfate [Feosol] 325 mg PO BID #60 tab 10/25/20 [Rx] Pantoprazole Sodium [Protonix] 40 mg PO BID #60 tablet. 10/25/20 [Rx] Sucralfate [Carafate] 1 gm PO ACHS #120 tablet 10/25/20 [Rx] amLODIPine [Norvasc] 10 mg PO DAILY #30 tablet 10/25/20 [Rx] Follow up Appointment(s)/Referral(s): None,Stated [Primary Care Provider] - 1-2 days Jamel Bentley MD [STAFF PHYSICIAN] - 4 Weeks Discharge Disposition: HOME SELF-CARE
[2020-10-25 14:42] VITALS: BP 143/81; PULSE 89; RESP 17; TEMP 98.3
== END 2020-10-25 15:11 | disposition home or self-care (01) ==
LOC: EC 23:55 → 6NMEDSUR 10-24 02:15
PROVIDERS: ADMIT Internal Medicine; ATTEND Internal Medicine
DX: D50.9 Iron deficiency anemia, unspecified (principal); I16.0 Hypertensive urgency; F10.10 Alcohol abuse, uncomplicated; K22.10 Ulcer of esophagus without bleeding; K29.70 Gastritis, unspecified, without bleeding; K21.9 Gastro-esophageal reflux disease without esophagitis; K59.00 Constipation, unspecified; I11.9 Hypertensive heart disease without heart failure; R10.13 Epigastric pain; G89.29 Other chronic pain; F31.9 Bipolar disorder, unspecified; K44.9 Diaphragmatic hernia without obstruction or gangrene; J98.11 Atelectasis; Z79.899 Other long term (current) drug therapy; R91.8 Other nonspecific abnormal finding of lung field; Z79.1 Long term (current) use of non-steroidal anti-inflammatories (NSAID); Z87.19 Personal history of other diseases of the digestive system
CPT/HCPCS: 96376; 96361; 96374; 96375; 99285; 36415; 94760; 93005; 88305; 83880; 80053 ×2; 82607; 82728; 82550; 82746; 83540; 83550; 83605; 83690; 83735 ×2; 84100 ×2; 84484; 85025 ×2; 85610; 85045; 85730; 81003; 88312; 80143; 80179; 71275; 74177; 43239; G0378 ×2; G0480; J2270; J2001; J2916; J1885; J2704; C9113 ×2; Q9967; 80320

== ENCOUNTER 2021-04-23 10:08 | Emergency (ER) | payer OTHER ==
[2021-04-23 10:38] VITALS: TEMP 98.4
[2021-04-23] MEDS ORDERED: SODIUM CHLORIDE 0.9% 1,000 ML IV STA (11:30)
--- NOTE | 2021-04-23 11:48 | ED ---
General Adult HPI - General Chief complaint: Extremity Problem,Nontraumatic Stated complaint: leg, arm & groin pain Time Seen by Provider: 04/23/21 11:05 Source: patient, RN notes reviewed Mode of arrival: ambulatory Limitations: no limitations - History of Present Illness Initial comments: 56-year-old male presents to the emergency department for evaluation of bilateral groin pain that extends to the waistline. Patient states this pain is intermittent in nature and has been going on for weeks. No aggravating or alleviating factors. Patient states he does have a sense of urinary urgency. Denies injury, fever, chills, chest pain, abdominal pain, nausea, vomiting, diarrhea, dysuria, or hematuria. Denies lower extremity pain. Patient also complains of left arm discomfort that he describes as numbness. Patient states he has been seen by neurology and is in the process of being referred to orthopedics due to a rotator cuff injury. Denies any change in this discomfort from baseline but states he is out of his pain medication. States he was recently hospitalized and had a cardiac workup with no significant findings. - Related Data Home Medications Medication Instructions Recorded Confirmed Omeprazole 20 mg PO DAILY 05/12/20 04/14/21 Cyclobenzaprine [Flexeril] 10 mg PO TID PRN 10/24/20 04/14/21 Naproxen 500 mg PO TID PRN 10/24/20 04/14/21 DULoxetine HCL [Cymbalta] 30 mg PO BID 04/14/21 04/15/21 traMADol HCL [Ultram] 50 mg PO TID PRN 04/14/21 04/14/21 Previous Rx's Medication Instructions Recorded Ferrous Sulfate [Feosol] 325 mg PO BID #60 tab 10/25/20 amLODIPine [Norvasc] 10 mg PO DAILY #30 tablet 10/25/20 Aspirin 81 mg PO DAILY 30 Days #30 tab 04/15/21 Atorvastatin [Lipitor] 40 mg PO HS 30 Days #30 tab 04/15/21 Metoprolol Tartrate [Lopressor] 25 mg PO BID 30 Days #60 tab 04/15/21 Nitroglycerin Sl Tabs [Nitrostat] 0.4 mg SUBLINGUAL Q5M PRN #1 04/15/21 dispenser Allergies Allergy/AdvReac Type Severity Reaction Status Date / Time bee venom protein (honey bee) Allergy Rash/Hives Verified 04/23/21 10:38 Review of Systems ROS Statement: Those systems with pertinent positive or pertinent negative responses have been documented in the HPI. ROS Other: All systems not noted in ROS Statement are negative. Past Medical History Past Medical History: CVA/TIA, Hypertension History of Any Multi-Drug Resistant Organisms: Unobtainable Past Surgical History: Tonsillectomy Past Anesthesia/Blood Transfusion Reactions: No Reported Reaction Past Psychological History: Bipolar Smoking Status: Current every day smoker Past Alcohol Use History: Daily, Heavy Past Drug Use History: Marijuana - Past Family History Family Family Medical History: Unable to Obtain General Exam Limitations: no limitations General appearance: alert, in no apparent distress ENT exam: Present: mucous membranes dry (Developed, well-nourished male in no acute distress. Initial temperature 98.4, pulse 106, respirations 20, blood pressure 154/85, pulse ox 98% on room air.) Respiratory exam: Present: normal lung sounds bilaterally. Absent: respiratory distress, wheezes, rales, rhonchi, stridor Cardiovascular Exam: Present: regular rate, tachycardia, normal heart sounds, systolic murmur GI/Abdominal exam: Present: soft, normal bowel sounds. Absent: distended, tenderness, guarding, rebound, rigid, pulsatile mass, hernia exam: Present: normal inspection, other (bilateral groin tenderness upon palpation; no masses or hernias palpable). Absent: testicular tenderness, urethral discharge, scrotal swelling Extremities exam: Present: normal capillary refill, other (+2 brachial, radial, pedal, and posttibial pulses; no extremity edema). Absent: pedal edema Left Shoulder Exam: Present: normal inspection, full ROM, tenderness (upon palpation of the entire left shoulder). Absent: swelling, deformity, erythema Upper Arm exam: Present: normal inspection, full ROM. Absent: tenderness Elbow exam: Present: normal inspection, full ROM. Absent: tenderness, swelling Forearm Wrist exam: Present: normal inspection, full ROM Hand Wrist exam: Present: normal inspection, full ROM Vascular: Present: normal capillary refill, radial pulse, brachial pulse, ulnar pulse. Absent: vascular compromise, Pallo Back exam: Present: normal inspection. Absent: CVA tenderness (R), CVA tenderness (L) Neurological exam: Present: alert, oriented X3, CN II-XII intact Psychiatric exam: Present: normal affect, normal mood Skin exam: Present: warm, dry, intact, normal color. Absent: rash Course Vital Signs 04/23/21 04/23/21 04/23/21 10:34 12:00 17:09 Temperature 98.4 F Pulse Rate 106 H 101 H 98 Respiratory 20 16 18 Rate Blood Pressure 154/85 153/87 141/89 O2 Sat by Pulse 98 95 97 Oximetry - Reevaluation(s) Reevaluation #1: 04/23/21 13:20 Preparation for discharge, follow up care was discussed. Patient then stated he wished to speak with someone from psychiatric services as he is uncertain of his medications. Patient is prescribed a pediatric care through [facility] and [facility]. Explained that this facilitated collaborative care, however he continues to insist that he be allowed to speak with someone, therefore EPS was consulted. Patient denies thoughts of causing harm to himself or anyone else. States he gets poor rest in his living situation at the [facility]. 04/23/21 16:00 EPS spoke with patient and updated this provider. Patient will be discharged home as planned and encouraged to see the providers that he is already established with. Medical Decision Making - Medical Decision Making 56-year-old male with a past medical history of hypertension and bipolar disorder presents to the emergency Department with complaints of ongoing bilateral groin pain. Upon exam, patient is well-appearing and in no acute distress. Physical exam findings are unremarkable. Patient does complain of chronic left shoulder pain for which she has been referred to orthopedics by his neurologist. Patient did have a recent hospital admission with full cardiac workup. States he was having groin pain then, but it was not addressed at that time. Patient is unable to articulate the quality of pain. Denies any injury or trauma. Ultrasound of bilateral groin was obtained and is unremarkable. Laboratory studies were reviewed showing no change from baseline. At time of discharge, patient insists he be able to speak with mental health. Patient denies suicidal or homicidal ideations. Does complain of anxiety and poor rest attributed to his living situation at the [facility]. EPS nurse did come and evaluate patient. Discussed resources available and provided reassurance. Patient will be discharged home to follow up with his PCP and [facility]. Return parameters were discussed in detail. Patient verbalizes understanding and agrees with this plan. This patient's care was discussed with my attending Dr. Valladares. - Lab Data Result diagrams: 04/23/21 11:35 04/23/21 11:35 Lab Results 04/23/21 04/23/21 04/23/21 Range/Units 11:35 11:35 13:11 WBC 12.1 H (3.8-10.6) k/uL RBC 4.39 (4.30-5.90) m/uL Hgb 14.8 (13.0-17.5) gm/dL Hct 44.9 (39.0-53.0) % MCV 102.3 H (80.0-100.0) fL MCH 33.7 (25.0-35.0) pg MCHC 32.9 (31.0-37.0) g/dL RDW 13.7 (11.5-15.5) % Plt Count 406 (150-450) k/uL MPV 7.0 Neutrophils % 80 % Lymphocytes % 11 % Monocytes % 6 % Eosinophils % 1 % Basophils % 0 % Neutrophils # 9.6 H (1.3-7.7) k/uL Lymphocytes # 1.3 (1.0-4.8) k/uL Monocytes # 0.8 (0-1.0) k/uL Eosinophils # 0.2 (0-0.7) k/uL Basophils # 0.0 (0-0.2) k/uL Macrocytosis Slight Sodium 140 (137-145) mmol/L Potassium 4.4 (3.5-5.1) mmol/L Chloride 103 (98-107) mmol/L Carbon Dioxide 27 (22-30) mmol/L Anion Gap 10 mmol/L BUN 7 L (9-20) mg/dL Creatinine 0.82 (0.66-1.25) mg/dL Est GFR (CKD-EPI)AfAm >90 (>60 ml/min/1.73 sqM) Est GFR (CKD-EPI)NonAf >90 (>60 ml/min/1.73 sqM) Glucose 108 H (74-99) mg/dL Calcium 11.5 H (8.4-10.2) mg/dL Total Bilirubin 0.8 (0.2-1.3) mg/dL AST 27 (17-59) U/L ALT 26 (4-49) U/L Alkaline Phosphatase 61 (38-126) U/L Total Protein 7.9 (6.3-8.2) g/dL Albumin 4.9 (3.5-5.0) g/dL Urine Color Colorless Urine Appearance Clear (Clear) Urine pH 7.0 (5.0-8.0) Ur Specific [place] 1.002 (1.001-1.035) Urine Protein Negative (Negative) Urine Glucose (UA) Negative (Negative) Urine Ketones Negative (Negative) Urine Blood Negative (Negative) Urine Nitrite Negative (Negative) Urine Bilirubin Negative (Negative) Urine Urobilinogen <2.0 (<2.0) mg/dL Ur Leukocyte Esterase Negative (Negative) Urine Opiates Screen (NotDetected) Ur Oxycodone Screen (NotDetected) Urine Methadone Screen (NotDetected) Ur Propoxyphene Screen (NotDetected) Ur Barbiturates Screen (NotDetected) U Tricyclic Antidepress (NotDetected) Ur Phencyclidine Scrn (NotDetected) Ur Amphetamines Screen (NotDetected) U Methamphetamines Scrn (NotDetected) U Benzodiazepines Scrn (NotDetected) Urine Cocaine Screen (NotDetected) U Marijuana (THC) Screen (NotDetected) 04/23/21 Range/Units 13:11 WBC (3.8-10.6) k/uL RBC (4.30-5.90) m/uL Hgb (13.0-17.5) gm/dL Hct (39.0-53.0) % MCV (80.0-100.0) fL MCH (25.0-35.0) pg MCHC (31.0-37.0) g/dL RDW (11.5-15.5) % Plt Count (150-450) k/uL MPV Neutrophils % % Lymphocytes % % Monocytes % % Eosinophils % % Basophils % % Neutrophils # (1.3-7.7) k/uL Lymphocytes # (1.0-4.8) k/uL Monocytes # (0-1.0) k/uL Eosinophils # (0-0.7) k/uL Basophils # (0-0.2) k/uL Macrocytosis Sodium (137-145) mmol/L Potassium (3.5-5.1) mmol/L Chloride (98-107) mmol/L Carbon Dioxide (22-30) mmol/L Anion Gap mmol/L BUN (9-20) mg/dL Creatinine (0.66-1.25) mg/dL Est GFR (CKD-EPI)AfAm (>60 ml/min/1.73 sqM) Est GFR (CKD-EPI)NonAf (>60 ml/min/1.73 sqM) Glucose (74-99) mg/dL Calcium (8.4-10.2) mg/dL Total Bilirubin (0.2-1.3) mg/dL AST (17-59) U/L ALT (4-49) U/L Alkaline Phosphatase (38-126) U/L Total Protein (6.3-8.2) g/dL Albumin (3.5-5.0) g/dL Urine Color Urine Appearance (Clear) Urine pH (5.0-8.0) Ur Specific [place] (1.001-1.035) Urine Protein (Negative) Urine Glucose (UA) (Negative) Urine Ketones (Negative) Urine Blood (Negative) Urine Nitrite (Negative) Urine Bilirubin (Negative) Urine Urobilinogen (<2.0) mg/dL Ur Leukocyte Esterase (Negative) Urine Opiates Screen Not Detected (NotDetected) Ur Oxycodone Screen Not Detected (NotDetected) Urine Methadone Screen Not Detected (NotDetected) Ur Propoxyphene Screen Not Detected (NotDetected) Ur Barbiturates Screen Not Detected (NotDetected) U Tricyclic Antidepress Not Detected (NotDetected) Ur Phencyclidine Scrn Not Detected (NotDetected) Ur Amphetamines Screen Not Detected (NotDetected) U Methamphetamines Scrn Detected H (NotDetected) U Benzodiazepines Scrn Not Detected (NotDetected) Urine Cocaine Screen Not Detected (NotDetected) U Marijuana (THC) Screen Not Detected (NotDetected) - Radiology Data Radiology results: report reviewed Ultrasound of the right groin was obtained. Report was reviewed in its entirety. Impression per Dr. Smith is normal soft tissue right inguinal region. No hernia noted. Ultrasound of the left groin was obtained. Report was reviewed in its entirety. Impression per Dr. Smith is normal soft tissue left inguinal region. No hernia noted. Disposition Clinical Impression: Bilateral groin pain Disposition: HOME SELF-CARE Condition: Poor Instructions (If sedation given, give patient instructions): Groin Pain (ED) Additional Instructions: You may take Tylenol as needed for groin pain. Follow up with your PCP for a recheck and to coordinate your care. Return to the emergency department with any new, worsening, or concerning conditions. Is patient prescribed a controlled substance at d/c from ED?: No Referrals: None,Stated [Primary Care Provider] - 1-2 days Lianna Woods NPC [Nurse Practitioner] - 1-2 days Time of Disposition: 16:30
[2021-04-23 12:23] LABS: ALT 26 U/L (4-49); AST 27 U/L (17-59); African American GFR (CKD) >90 (>60 ml/min/1.73 sqM); Albumin 4.9 g/dL (3.5-5.0); Alkaline Phosphatase 61 U/L (38-126); Anion Gap 10 mmol/L; Blood Urea Nitrogen 7 mg/dL (9-20); Calcium 11.5 mg/dL (8.4-10.2); Carbon Dioxide 27 mmol/L (22-30); Chloride 103 mmol/L (98-107); Glucose 108 mg/dL (74-99); Non-African American GFR(CKD) >90 (>60 ml/min/1.73 sqM); Potassium 4.4 mmol/L (3.5-5.1); Sodium 140 mmol/L (137-145); Total Bilirubin 0.8 mg/dL (0.2-1.3); Total Protein 7.9 g/dL (6.3-8.2)
[2021-04-23 12:34] LABS: Basophils % (A) 0 %; Eosinophils # (A) 0.2 k/uL (0-0.7); Eosinophils % (A) 1 %; HCT 44.9 % (39.0-53.0); HGB 14.8 gm/dL (13.0-17.5); Lymphocytes # (A) 1.3 k/uL (1.0-4.8); Lymphocytes % (A) 11 %; MCH 33.7 pg (25.0-35.0); MCHC 32.9 g/dL (31.0-37.0); MCV 102.3 fL (80.0-100.0); Macrocytosis Slight; Monocytes # (A) 0.8 k/uL (0-1.0); Monocytes % (A) 6 %; Neutrophils # (A) 9.6 k/uL (1.3-7.7); Neutrophils % (A) 80 %; Platelet Count 406 k/uL (150-450); RBC 4.39 m/uL (4.30-5.90); RDW 13.7 % (11.5-15.5); WBC 12.1 k/uL (3.8-10.6)
--- NOTE | 2021-04-23 13:00 | US ---
EXAMINATION TYPE: US groin RT DATE OF EXAM: 04/23/2021 COMPARISON: NONE CLINICAL HISTORY: bilateral groin pain. right groin pain. The right groin was scanned with and without valsalva. No obvious hernia noted. Groin vessels are pat ent. No fluid collection or masses seen. IMPRESSION: 1. Normal soft tissue right inguinal region. No hernia noted.
--- NOTE | 2021-04-23 13:01 | US ---
EXAMINATION TYPE: US groin LT DATE OF EXAM: 04/23/2021 COMPARISON: NONE CLINICAL HISTORY: bilateral groin pain. left groin pain. The left groin was scanned with and without valsalva. No obvious hernia noted. Groin vessels are esteves nt. No fluid collection or masses seen. IMPRESSION: 1. Normal left inguinal soft tissue ultrasound. 2. No hernia identified.
[2021-04-23 13:19] LABS: Appearance,Urine Clear (Clear); Bilirubin,Urine Negative (Negative); Blood,Urine Negative (Negative); Color,Urine Colorless; Glucose,Urine (UA) Negative (Negative); Ketones,Urine Negative (Negative); Leukocyte Esterase,Urine Negative (Negative); Nitrite,Urine Negative (Negative); Protein,Urine Negative (Negative); Specific Gravity,Urine 1.002 (1.001-1.035); Urobilinogen,Urine <2.0 mg/dL (<2.0)
[2021-04-23 16:14] LABS: Amphetamine Screen,Urine Not Detected (NotDetected); Barbiturate Screen,Urine Not Detected (NotDetected); Benzodiazepines Screen,Urine Not Detected (NotDetected); Cocaine Screen,Urine Not Detected (NotDetected); Methadone Screen, Urine Not Detected (NotDetected); Opiate Screen,Urine Not Detected (NotDetected); Oxycodone Screen, Urine Not Detected (NotDetected); Phencyclidine Screen,Urine Not Detected (NotDetected); Tricyclic Antidepressant,Urine Not Detected (NotDetected); Urn Cannabinoid Scrn Not Detected (NotDetected)
[2021-04-23 17:10] VITALS: BP 141/89; PULSE 98; RESP 18
== END 2021-04-23 17:10 | disposition home or self-care (01) ==
LOC: EC 10:08
DX: R10.9 Unspecified abdominal pain (principal); I10 Essential (primary) hypertension; F31.9 Bipolar disorder, unspecified; F17.200 Nicotine dependence, unspecified, uncomplicated; F12.90 Cannabis use, unspecified, uncomplicated; Z79.82 Long term (current) use of aspirin; Z86.73 Personal history of transient ischemic attack (TIA), and cerebral infarction without residual deficits
CPT/HCPCS: 36415; 80053; 80306; 81003; 82075; 85025; 99284

== ENCOUNTER 2021-08-01 17:44 | Emergency (ER) | payer OTHER ==
[2021-08-01 18:13] VITALS: TEMP 98.1
[2021-08-01] MEDS ORDERED: METOCLOPRAMIDE 5 MG/ML 2 ML VIAL IVP STA (19:11)
[2021-08-01] MEDS ORDERED: diphenhydrAMINE 50 MG/ML 1 ML VIAL IVP STA (19:11)
[2021-08-01] MEDS ORDERED: DEXAMETHASONE SOD PHOSPHATE 10 MG/ML 1 ML VIAL IV STA (19:11)
[2021-08-01] MEDS ORDERED: SODIUM CHLORIDE 0.9% 1,000 ML IV STA (19:11)
[2021-08-01 19:26] VITALS: RESP 14
--- NOTE | 2021-08-01 20:13 | CT ---
EXAMINATION TYPE: CT brain cspine wo con CT DLP: 2273.8 mGycm, Automated exposure control for dose reduction was used. DATE OF EXAM: 08/01/2021 7:52 PM COMPARISON: CT brain 05/12/2020 CLINICAL INDICATION:Male, 56 years old with history of numbness/tingling on one side; Left sided weak ness and numbness. TECHNIQUE: Brain: Multiple axial CT images of the brain were obtained without IV contrast. Cspine: Axial CT images from the skull base to the inferior aspect of T2 we obtained without intraven ous contrast. Coronal and sagittal reformatted images were also reviewed. FINDINGS: Brain: Extra-axial spaces: No abnormal extra-axial fluid collections. Ventricular system: Within normal limits Cerebral parenchyma: No acute intraparenchymal hemorrhage or mass effect. The echevarria-white junction is well differentiated. Cerebellum: Unremarkable. Mass effect: No evidence of midline shift. Intracranial vasculature: unremarkable Soft tissues: Left posterior scalp intramuscular lipoma measuring 22 x 8 mm. Calvarium/osseous structures: No depressed skull fracture. Paranasal sinuses and mastoid air cells: Clear. Visualized orbits: Orbital contents are intact. Cervical spine: Fracture: None. Osseous structures: Multilevel degenerative disc disease changes with endplate spurring and disc oste ophyte complex's. Vertebral alignment: Within normal limits. Spinal canal/Neural Foramina: No evidence of significant spinal canal narrowing. Facet joint arthropa thy and uncovertebral arthropathy resulting in C4-C5 neural foraminal stenosis most pronounced on the left. Neck soft tissues: Prevertebral soft tissues are within normal limits. Other: The airway is patent. Mild apical atelectasis/scarring with paraseptal emphysema changes. Reso lution visualized right upper lobe calcified granuloma. Asymmetrically enlarged right internal jugula r vein. IMPRESSION: 1. No acute intracranial process. 2. No evidence of cervical spine fracture. 3. Mild multilevel degenerative disc disease with moderate to severe left C4-C5 neural foraminal sten osis. 4. COPD changes.
--- NOTE | 2021-08-01 20:21 | ED ---
General Adult HPI - General Chief complaint: Extremity Problem,Nontraumatic Stated complaint: L sided numbness Time Seen by Provider: 08/01/21 18:46 Source: patient Mode of arrival: ambulatory Limitations: no limitations - History of Present Illness Initial comments: Patient is 56-year-old male presenting with chief complaint of numbness, tingling, weakness in the left arm. Patient is difficult to obtain history from, states "I have been out of it all day ". He states that it was difficult to hold a coffee cup today due to the weakness. Patient admits to a history of these type of symptoms, he has had previous neck and back injuries. Patient is keeping his eyes closed while obtaining history, states that he currently has a migraine and is experiencing photophobia. Patient has been taking naproxen for the migraine with no pain relief. Patient denies any drug use. Denies chest pain, shortness of breath, abdominal pain, nausea, vomiting, fever, chills, diarrhea, hematuria, dysuria, hematemesis, hematochezia, aphasia - Related Data Home Medications Medication Instructions Recorded Confirmed Omeprazole 20 mg PO DAILY 05/12/20 08/01/21 Cyclobenzaprine [Flexeril] 10 mg PO TID PRN 10/24/20 08/01/21 Naproxen 500 mg PO TID PRN 10/24/20 08/01/21 Amitriptyline HCl [Elavil] 10 mg PO HS 08/01/21 08/01/21 DULoxetine HCL [Cymbalta] 60 mg PO BID 08/01/21 08/01/21 [place] Carbonate 900 mg PO HS 08/01/21 08/01/21 OLANZapine [ZyPREXA] 10 mg PO TID 08/01/21 08/01/21 Tamsulosin HCl [Flomax] 0.4 mg PO DAILY 08/01/21 08/01/21 Previous Rx's Medication Instructions Recorded Ferrous Sulfate [Feosol] 325 mg PO BID #60 tab 10/25/20 amLODIPine [Norvasc] 10 mg PO DAILY #30 tablet 10/25/20 Aspirin 81 mg PO DAILY 30 Days #30 tab 04/15/21 Atorvastatin [Lipitor] 40 mg PO HS 30 Days #30 tab 04/15/21 Metoprolol Tartrate [Lopressor] 25 mg PO BID 30 Days #60 tab 04/15/21 Nitroglycerin Sl Tabs [Nitrostat] 0.4 mg SUBLINGUAL Q5M PRN #1 04/15/21 dispenser Allergies Allergy/AdvReac Type Severity Reaction Status Date / Time bee venom protein (honey bee) Allergy Rash/Hives Verified 08/01/21 20:45 Review of Systems ROS Statement: Those systems with pertinent positive or pertinent negative responses have been documented in the HPI. ROS Other: All systems not noted in ROS Statement are negative. Past Medical History Past Medical History: CVA/TIA, Hypertension History of Any Multi-Drug Resistant Organisms: Unobtainable Past Surgical History: Tonsillectomy Past Anesthesia/Blood Transfusion Reactions: No Reported Reaction Past Psychological History: Bipolar Smoking Status: Current every day smoker Past Alcohol Use History: Daily, Heavy Past Drug Use History: None Reported - Past Family History Family Family Medical History: Unable to Obtain General Exam Limitations: no limitations General appearance: in no apparent distress, lethargic Head exam: Present: atraumatic, normocephalic, normal inspection Eye exam: Present: normal appearance, PERRL, EOMI. Absent: scleral icterus, conjunctival injection, periorbital swelling Pupils: Present: normal accommodation ENT exam: Present: normal exam, mucous membranes moist Neck exam: Present: normal inspection Respiratory exam: Present: normal lung sounds bilaterally. Absent: respiratory distress, wheezes, rales, rhonchi, stridor Cardiovascular Exam: Present: regular rate, normal rhythm, normal heart sounds. Absent: systolic murmur, diastolic murmur, rubs, gallop, clicks GI/Abdominal exam: Present: soft, normal bowel sounds. Absent: distended, tenderness, guarding, rebound, rigid Extremities exam: Present: normal inspection, full ROM, normal capillary refill. Absent: tenderness Neurological exam: Present: alert, oriented X3, CN II-XII intact Expanded Neurological exam: Present: inattentive. Absent: ataxia, tremor Patient oriented to: Present: person, place, time Speech: Present: fluid speech Cranial nerves: EOM's Intact: Normal, Facial Sensation: Normal Motor strength exam: RUE: 5, LUE: 5 Eye Response: (4) open spontaneously Motor Response: (6) obeys commands Verbal Response: (5) oriented Peter Total: 15 Psychiatric exam: Present: normal mood, flat affect Skin exam: Present: warm, dry, intact, normal color. Absent: rash Course Vital Signs 08/01/21 08/01/21 08/01/21 18:10 19:23 20:31 Temperature 98.1 F Pulse Rate 59 L 57 L 64 Respiratory 16 14 14 Rate Blood Pressure 94/63 95/65 91/60 O2 Sat by Pulse 100 97 97 Oximetry EKG Findings - EKG Comments: EKG Findings:: Sinus bradycardia, rate of 53. Left axis deviation. ND interval 174. QRS duration 116. This EKG was also shown to and interpreted by my attending Dr. Santana - EKG Results: EKG: interpreted by ERMD EKG shows: bradycardia Medical Decision Making - Medical Decision Making Patient is a 56-year-old male presenting with chief complaint of left arm numbness, tingling, weakness. Patient states that symptoms began today. Patient was recently released from half-way where he obtained an injury to the neck and back. Patient admits to a history of similar symptoms due to chronic neck pain. While obtaining the history the patient is keeping his eyes closed sighting that he has a migraine headache. Patient is difficult to obtain a history from, he answers questions vaguely or refuses to answer clearly. On exam strength is 5 out of 5, normal muscle bulk and tone. Patient states that sensation is diminished. No focal neurological deficits. CT of brain and cervical spine social no acute intracranial process or evidence of cervical spine fracture. While multiple level degenerative disc disease with moderate to severe left C3 through C5 neural foraminal stenosis. Pain is likely due to radiculopathy. I informed patient of the findings and encouraged him to follow up with orthopedics within the week. Provided him with orthopedic referral. Follow-up with PCP this week. Take Motrin, Tylenol, heat or ice as needed for pain control. Report back to ER with any worsening symptoms. I educated on return parameters and answered all questions. He shouldn't conveyed verbal u nderstanding and agreed to the plan. I discussed this case with my attending Dr. Santana. - Lab Data Lab Results 08/01/21 Range/Units 19:32 Serum Alcohol <10 mg/dL - Radiology Data Radiology results: report reviewed CT of brain and cervical spine social no acute intracranial process or evidence of cervical spine fracture. While multiple level degenerative disc disease with moderate to severe left C3 through C5 neural foraminal stenosis. Disposition Clinical Impression: Radiculopathy affecting upper extremity Disposition: HOME SELF-CARE Condition: Good Instructions (If sedation given, give patient instructions): Cervical Radiculopathy (ED), Chronic Neck Pain (DC) Additional Instructions: Take Motrin and Tylenol as needed for pain control. Follow up with orthopedics this week. Follow-up with PCP this week. Report back to ER with any worsening symptoms. Is patient prescribed a controlled substance at d/c from ED?: No Referrals: [facility] [Primary Care Provider] - 1-2 days Kenyatta Enriquez DO [Doctor of Osteopathic Medicine] - 08/05/21 Time of Disposition: 20:35
[2021-08-01 20:32] VITALS: BP 91/60; PULSE 64
== END 2021-08-01 20:46 | disposition home or self-care (01) ==
LOC: SUPCPDRO 17:44 → EC 17:44
DX: M54.12 Radiculopathy, cervical region (principal); I10 Essential (primary) hypertension; Z86.73 Personal history of transient ischemic attack (TIA), and cerebral infarction without residual deficits; F17.200 Nicotine dependence, unspecified, uncomplicated; Z91.030 Bee allergy status
CPT/HCPCS: 36415; 93005; 72125; 70450; 99285; 96374; 96375; 96361; G0480; J1200; J1100; J2765; 80320

== ENCOUNTER 2021-08-24 20:51 | Emergency (ER) | payer OTHER ==
[2021-08-25 02:13] VITALS: RESP 18
[2021-08-25] MEDS ORDERED: HYDROmorphone 1 MG/ML 1 ML SYRINGE IM STA (02:36)
[2021-08-25] MEDS ORDERED: traMADol 50 MG STARTER PACK 3 TAB BTL PO STA (02:36)
[2021-08-25] MEDS ORDERED: IBUPROFEN 600 MG STARTER PACK 4 TAB BTL PO STA (02:36)
--- NOTE | 2021-08-25 02:37 | ED ---
Back Pain HPI - General Chief Complaint: Extremity Injury, Lower Stated Complaint: Back, Hip, and Leg Pain Time Seen by Provider: 08/25/21 02:27 Source: patient, RN notes reviewed, old records reviewed Limitations: no limitations - History of Present Illness Initial Comments: This is a 56-year-old male here for evaluation regards to back pain. Patient is claiming that he cannot walk. Patient did walk in the emergency department. Patient also complaining of left lower extremity pain. Left leg pain left back pain. Severe. Patient is asking for water. Patient is known to our emergency department. Denies any trauma. No loss of bowel or bladder no other complaints MD Complaint: back pain, back injury -: hour(s) Similar Symptoms Previously: Yes Place: home Radiation: none Severity: moderate Severity scale (1-10): 5 Quality: sharp Consistency: constant Improves With: none Context: unknown Associated Symptoms: denies other symptoms - Related Data Home Medications Medication Instructions Recorded Confirmed Omeprazole 20 mg PO DAILY 05/12/20 08/01/21 Cyclobenzaprine [Flexeril] 10 mg PO TID PRN 10/24/20 08/01/21 Naproxen 500 mg PO TID PRN 10/24/20 08/01/21 Amitriptyline HCl [Elavil] 10 mg PO HS 08/01/21 08/01/21 DULoxetine HCL [Cymbalta] 60 mg PO BID 08/01/21 08/01/21 [place] Carbonate 900 mg PO HS 08/01/21 08/01/21 OLANZapine [ZyPREXA] 10 mg PO TID 08/01/21 08/01/21 Tamsulosin HCl [Flomax] 0.4 mg PO DAILY 08/01/21 08/01/21 Previous Rx's Medication Instructions Recorded Ferrous Sulfate [Feosol] 325 mg PO BID #60 tab 10/25/20 amLODIPine [Norvasc] 10 mg PO DAILY #30 tablet 10/25/20 Aspirin 81 mg PO DAILY 30 Days #30 tab 04/15/21 Atorvastatin [Lipitor] 40 mg PO HS 30 Days #30 tab 04/15/21 Metoprolol Tartrate [Lopressor] 25 mg PO BID 30 Days #60 tab 04/15/21 Nitroglycerin Sl Tabs [Nitrostat] 0.4 mg SUBLINGUAL Q5M PRN #1 04/15/21 dispenser Allergies Allergy/AdvReac Type Severity Reaction Status Date / Time bee venom protein (honey bee) Allergy Rash/Hives Verified 08/24/21 20:57 Review of Systems ROS Statement: Those systems with pertinent positive or pertinent negative responses have been documented in the HPI. ROS Other: All systems not noted in ROS Statement are negative. Past Medical History Past Medical History: CVA/TIA, Hypertension History of Any Multi-Drug Resistant Organisms: Unobtainable Past Surgical History: Tonsillectomy Past Anesthesia/Blood Transfusion Reactions: No Reported Reaction Past Psychological History: Bipolar Smoking Status: Current every day smoker Past Alcohol Use History: Daily, Heavy Past Drug Use History: None Reported - Past Family History Family Family Medical History: Unable to Obtain General Exam Limitations: no limitations General appearance: alert, in no apparent distress Head exam: Present: atraumatic, normocephalic, normal inspection Eye exam: Present: normal appearance, PERRL, EOMI. Absent: scleral icterus, conjunctival injection, periorbital swelling ENT exam: Present: normal exam, mucous membranes moist Neck exam: Present: normal inspection. Absent: tenderness, meningismus, lymphadenopathy Respiratory exam: Present: normal lung sounds bilaterally. Absent: respiratory distress, wheezes, rales, rhonchi, stridor Cardiovascular Exam: Present: normal rhythm, tachycardia, normal heart sounds. Absent: systolic murmur, diastolic murmur, rubs, gallop, clicks GI/Abdominal exam: Present: soft, normal bowel sounds. Absent: distended, tenderness, guarding, rebound, rigid Extremities exam: Present: normal inspection, full ROM, normal capillary refill. Absent: tenderness, pedal edema, joint swelling, calf tenderness Back exam: Present: normal inspection Neurological exam: Present: alert, oriented X3, CN II-XII intact Psychiatric exam: Present: normal affect, normal mood Skin exam: Present: warm, dry, intact, normal color. Absent: rash Course Vital Signs 08/24/21 08/25/21 20:55 02:04 Temperature 97.7 F 97.2 F L Pulse Rate 115 H 96 Respiratory 20 18 Rate Blood Pressure 131/71 127/84 O2 Sat by Pulse 94 L 98 Oximetry - Reevaluation(s) Reevaluation #1: 08/25/21 03:13 Medical record is reviewed Reevaluation #2: 08/25/21 03:13 Patient symptoms are improved here in the ER Reevaluation #3: 08/25/21 03:13 Patient informed of results and questions answered Reevaluation #4: 08/25/21 03:13 Patient able to ambulate here in the ER Medical Decision Making - Medical Decision Making 56 male to the emergency department with back pain. Back pain is well- controlled. CT is negative and patient can be discharged home - Radiology Data Radiology results: report reviewed (CT lumbosacral spine negative for acute disease), image reviewed Disposition Clinical Impression: Bipolar 1 disorder, Back pain Disposition: HOME SELF-CARE Condition: Fair Instructions (If sedation given, give patient instructions): Back Pain (ED) Is patient prescribed a controlled substance at d/c from ED?: No Referrals: None,Stated [Primary Care Provider] - 1-2 days
--- NOTE | 2021-08-25 03:10 | CT ---
EXAMINATION TYPE: CT lumbar spine wo con DATE OF EXAM: 08/25/2021 COMPARISON: CT scan 10/24/2020 HISTORY: pain CT DLP: 711.7 mGycm Automated exposure control for dose reduction was used. Images obtained from the level of T12-S1 vertebra without contrast. The lumbar vertebrae have normal alignment. There is some spurring of the endplates throughout the prabhu mbar spine. No compression fracture. There is multilevel mild hypertrophic lumbar facet arthropathy. There is no lumbar paraspinal mass. There is mild wedging of T11 vertebra 15-20%. There is 15% wedgin g of T12 vertebra. No definite acute fracture. There is no lumbar paraspinal mass. No evidence of lumbar spinal stenosis. Sacroiliac joints are inta ct. There is some hypertrophic spurring at the anterior left sacroiliac joint. IMPRESSION: Mild spondylotic changes. Mild anterior wedging of T11 and T12 without change. No acute fracture seen .
[2021-08-25 05:07] VITALS: BP 134/73; PULSE 87; TEMP 97.6
== END 2021-08-25 05:00 | disposition home or self-care (01) ==
LOC: EC 20:51
DX: M54.50 Low back pain, unspecified (principal); F31.9 Bipolar disorder, unspecified; I10 Essential (primary) hypertension; F17.200 Nicotine dependence, unspecified, uncomplicated; Z86.73 Personal history of transient ischemic attack (TIA), and cerebral infarction without residual deficits; Z79.82 Long term (current) use of aspirin; Z79.899 Other long term (current) drug therapy
CPT/HCPCS: 96372 ×2; 99283 ×2; 72131; J1170